=== PATIENT | female | born 1960 | race Caucasian/White ===

== ENCOUNTER 2016-03-24 14:48 | Emergency (ER) | payer OTHER, MEDICAID ==
[2016-03-24 15:05] VITALS: BP 126/70; PULSE 121; RESP 18; TEMP 98.4; O2SAT 95
--- NOTE | 2016-03-24 15:15 | EDPHY ---
[id number] OF PRESENT ILLNESS: This patient is a 56 year old female with a history of depression who presents to the Emergency Department requesting medication refills. She tells me that her psychiatrist, Dr. Hicks in [place], was suspended and that she is unable to get in to see a doctor for the next 6 weeks. She presents with a list of six medications including Rexulti , Cymbalta, Adderall, Clonazepam, and Tramadol but reports that she only takes Cymbalta and Rexulti regularly. She has no medical complaints at this time. REVIEW OF SYSTEMS: Constitutional: No fever, no chills Respiratory: No cough, no shortness of breath Cardiac: No chest pain Gastrointestinal: No nausea, no vomiting, no abdominal pain Musculoskeletal: No leg pain or swelling Skin: No rash Neurological: No headache Past Medical/Surgical History: 1. Depression 2. TBI Social History: Lives in [place]. Smoking Status: Current every day smoker Physical Exam: General Appearance: Alert, pleasant Eyes: Pupils equal and round, no conjunctival pallor ENT, Mouth: Mucous membranes moist Neck: Normal inspection Respiratory: Lungs are clear to auscultation Cardiovascular: Regular rate and rhythm Neurological: A&O, nonfocal, normal gait Skin: Warm and dry Psychiatric: Mood and affect normal Constitutional: Initial Vital Signs Temperature (C) 36.9 C 03/24/16 15:01 Heart Rate 121 H 03/24/16 15:01 Respiratory Rate 18 03/24/16 15:01 Blood Pressure 126/70 H 03/24/16 15:01 O2 Sat (%) 95 03/24/16 15:01 O2 Delivery Mode Room Air Allergies/Adverse Reactions: No Known Allergies Allergy (Unverified 09/05/10 22:05) Home Medications: Medication Instructions Recorded Abilify 5mg 05/16/09 Amphet Asp and D/Amphet [Adderall 20 mg PO DAILY 05/16/09 20 mg tab] Klonopin 05/16/09 LAMICTAL XR 05/16/09 PROzac 05/16/09 Adderall 10 MG (*) 03/24/16 Brexpiprazole [Rexulti] 0.5 mg PO DAILY #10 tablet 03/24/16 CLONAZEPAM 03/24/16 Cymbalta 03/24/16 DULoxetine [Cymbalta 30 MG (*)] 30 mg PO HS #10 cap 03/24/16 Rexulti 03/24/16 oxyCODONE/APAP 5/325 [Percocet] 1 - 2 tab PO Q4-6PRN PRN 03/24/16 traZODone 03/24/16 Medical Decision Making ED Course/Re-evaluation: I discussed the patient's case with Case Management who will arrange for the patient to be see by a psychiatrist within the week. She will be given her dosage of Rexulti and Cymbalta for the days remaining prior to this follow-up appointment. Departure - Departure Disposition: Home, Routine, Self-Care Clinical Impression: Medication refill Condition: Good Instructions: Medicine Refill (ED) Additional Instructions: 1. Follow up with the clinic as we discussed. 2. Continue to take your medications as prescribed. 3. Return to the Emergency Department with thoughts of harming yourself or others, anxiety or panic, or other serious concerns. ROSINA ALMAGUER WE HAVE MADE YOU AN APPOINTMENT AT [facility] ON March AT 325PM. YOUR APPOINTMENT IS WITH DR.JEN RICHARDSON. [facility] WILL ALSO BE THERE THAT AFTERNOON. IF YOU CAN STOP THERE BEFORE WEDNESDAY AND SIGN A RELEASE OF RECORDS FOR YOUR [place] PROVIDER THIS WOULD BE OF GREAT ASSISTANCE TO BOTH YOU AND [facility]. THEY WILL CALL YOU. THE NUMBER AT THE CLINIC IS . THE ADDRESS IS [address] [place] [address]. Referrals: [facility] [Outside] - As per Instructions Prescriptions: DULoxetine [Cymbalta 30 MG (*)] 30 mg PO HS #10 cap Brexpiprazole [Rexulti] 0.5 mg PO DAILY #10 tablet Report Scribed for: Kerri Shah Report Scribed by: Carmen Dorsey Date of Report: 03/24/16 Time of Report: 15:14 Physician Review and Approval Statement: 03/24/16 15:14 Portions of this note were transcribed by a medical insurance clerk. I personally performed a history, physical exam, medical decision making, and confirmed accuracy of information the transcribed note.
== END 2016-03-24 16:39 | disposition home or self-care (01) ==
DX: Z76.0 Encounter for issue of repeat prescription (principal); F17.200 Nicotine dependence, unspecified, uncomplicated

== ENCOUNTER 2016-05-13 12:25 | Emergency (ER) | payer OTHER, MEDICAID ==
[2016-05-13 12:44] VITALS: TEMP 97.7
[2016-05-13] MEDS ORDERED: NS 500 ML IV ONE (12:45)
--- NOTE | 2016-05-13 13:03 | CPEKG ---
Heart Rate: 103 RR Interval: 583 P-R Interval: 136 QRSD Interval: 110 QT Interval: 392 QTC Interval: 513 P [place]: 0 QRS [place]: 258 T Wave [place]: 83 EKG Severity - ABNORMAL ECG - EKG Impression: VENTRICULAR-PACED RHYTHM Electronically Signed By: Kerri Shah 13-May-2016 21:56:35
[2016-05-13 13:08] LABS: % IMMATURE GRANULYOCYTES 1.1 % (0.0-1.1); ABSOLUTE IMMATURE GRANULOCYTES 0.12 10^3/uL (0.00-0.10); ADD DIFF? NO; ADD MORPH? NO; ADD SCAN? NO; ATYPICAL LYMPHOCYTE FLAG 10 (0-99); FRAGMENT RBC FLAG 0 (0-99); HEMATOCRIT 41.4 % (38.0-47.0); HEMOGLOBIN 13.1 g/dL (12.6-16.3); LEFT SHIFT FLG 0 (0-99); LIPEMIA HEMOLYSIS FLAG 80 (0-99); MEAN CELL HEMOGLOBIN CONCENTR. 31.6 g/dL (32.4-36.7); MEAN CELL VOLUME 91.8 fL (81.5-99.8); MEAN PLATELET VOLUME 8.6 fL (8.7-11.7); PLATELET CLUMPS FLAG 0 (0-99); PLATELET COUNT 600 10^3/uL (150-400); RED BLOOD CELL COUNT 4.51 10^6/uL (4.18-5.33); RED CELL DISTRIBUTION WIDTH 14.4 % (11.5-15.2)
[2016-05-13 13:20] LABS: INR 1.79 (0.83-1.16); PROTIME(PATIENT) 20.9 SEC (12.0-15.0)
[2016-05-13 13:32] LABS: ANION GAP 17 mEq/L (8-16); CALCIUM 10.1 mg/dL (8.5-10.4); CARBON DIOXIDE 23 mEq/l (22-31); CHLORIDE 95 mEq/L (97-110); CREATININE 0.6 mg/dL (0.6-1.0); GLOMERULAR FILTRATION RATE > 60; GLUCOSE 153 mg/dL (70-100); POTASSIUM 6.1 mEq/L (3.5-5.2); SODIUM 135 mEq/L (134-144)
--- NOTE | 2016-05-13 13:36 | EDPHY ---
H & P Time Seen by Provider: 05/13/16 13:17 HPI/ROS: CHIEF COMPLAINT: Episode of dizziness HISTORY OF PRESENT ILLNESS: 56-year-old female with diabetes, 3 weeks status post CABG and valve replacement, presents after an episode of dizziness. She was discharged home from rehab yesterday. She was discharged home on a fluid- restricted diet and with a new rx for insulin. She is also on multiple new medicaitons. She did not fill the insulin rx and has not taken insulin since discharge. Blood sugars have been running 150-200. This morning after eating breakfast, she felt dizzy and then had an episode of vomiting. She now feels better, but is quite thirsty. No dizziness or nausea now. No recent fever or illness. REVIEW OF SYSTEMS: Constitutional: No fever, no chills Eyes: No visual changes ENT: No sore throat Respiratory: No cough, no shortness of breath Cardiac: No chest pain Gastrointestinal: no abdominal pain Genitourinary: No hematuria, no dysuria Musculoskeletal: No leg pain or swelling Skin: No rash Neurological: No headache, no weakness Psychiatric: Anxiety Past Medical/Surgical History: CABG Valve replacement Diabetes Pacemaker Social History: staying with her mother Elevator Installer: Dr. Merlos Smoking Status: Former smoker Physical Exam: General Appearance: Alert, pleasant Eyes: Pupils equal and round, no conjunctival pallor or injection ENT, Mouth: Mucous membranes moist Neck: Normal inspection Respiratory: well-healing surgical incision without erythema warmth or tenderness, Lungs are clear to auscultation Cardiovascular: Regular rate and rhythm Gastrointestinal: Abdomen is soft and nontender Neurological: A&O, nonfocal exam Skin: Warm and dry, no rash Extremities: left lower [id number] surgical scar Psychiatric: Mood and affect normal Constitutional: Initial Vital Signs Temperature (C) 36.5 C 05/13/16 12:41 Heart Rate 107 H 05/13/16 12:41 Respiratory Rate 20 05/13/16 12:41 Blood Pressure 127/77 H 05/13/16 12:41 O2 Sat (%) 97 05/13/16 12:41 O2 Delivery Mode Room Air Allergies/Adverse Reactions: No Known Allergies Allergy (Unverified 09/05/10 22:05) Home Medications: Medication Instructions Recorded Aspirin EC [Aspirin EC 81 mg (*)] 81 mg PO DAILY 03/18/10 Carvedilol [Coreg (*)] 6.25 mg PO BIDMEAL 05/16/09 Torsemide [Demadex] 20 mg PO DAILY10 05/16/09 metFORMIN HCL [Glucophage 500 mg 500 mg PO BIDMEAL 05/16/09 (*)] Acetaminophen [Tylenol 325mg (*)] 650 mg PO Q4HRS 03/24/16 Atorvastatin Calcium [Lipitor 40 40 mg PO DAILY 03/24/16 mg (*)] Insulin Glargine [Lantus 100 8 units SC HS 03/24/16 UNITS/ML (*)] Insulin Regular Human [Humulin R 0 unit SC TID 03/24/16 100 units/ml (*)] traZODone [traZODONE 100MG (*)] 100 mg PO HS 03/24/16 Hydrocodone/Acetaminophen [[place] 1 each PO Q4HRS PRN 05/13/16 5/325 (*)] Lisinopril [Zestril 5 mg (*)] 5 mg PO DAILY@12 05/13/16 Polyethylene Glycol 3350 [Miralax 17 gm PO DAILY 05/13/16 17 gm (*)] Sennosides/Docusate Sodium 2 tab PO DAILY 05/13/16 [Senokot-S] Spironolactone [Aldactone 25 MG 25 mg PO DAILY 05/13/16 (*)] Venlafaxine Xr [Effexor Xr 75MG 225 mg PO DAILY 05/13/16 (*)] Warfarin Sodium [Coumadin 2MG (*)] 2 mg PO DAILY16 05/13/16 traMADol [Ultram 50 mg (*)] 50 - 100 mg PO Q4 PRN 05/13/16 Medical Decision Making - Diagnostics EKG Interpretation: EKG interpreted by me reveals a paced rhythm. ED Course/Re-evaluation: This pt presents after an episode of dizziness. IVF 500ml given for possible fluid depletion. Initial labs concerning for hyperkalemia (K+ 6.1). Unclear if valid reading or not. If valid, likely secondary to dehydration and spironolactone. Repeat K+ 5.5. Pt tolerated oral fluids well. monitoring analyst revealed a paced rhythm throughout. I called in a prescription for insulin for the pt (she uses a pen injector). I consulted [facility], who will f/u with the pt in the office tomorrow for reevaluation and repeat labs. Pt will increase her fluid intake today. Pt recently had pacemaker placed; I doubt that the pacemaker is malfunctioning, and decided not to have the pacer interrogated. If her sx recur, consider pacer interrogation. Differential Diagnosis: includes though not limited to hypoglycemia, dehydration, dysrhythmia, vertigo, TIA. - Data Points Laboratory Results: Laboratory Results 05/13/16 12:30 05/13/16 15:00 Medications Given: Discontinued Medications Sodium Chloride (Ns) 500 mls @ 0 mls/hr IV ONCE ONE PRN Reason: Wide Open Stop: 05/13/16 12:46 Last Admin: 05/13/16 12:56 Dose: 500 mls Departure - Departure Disposition: Home, Routine, Self-Care Clinical Impression: Dizziness Condition: Good Instructions: Dizziness (ED) Additional Instructions: You are dehydrated today. Drink 8 cups of water daily (increased amount). I called in a new prescription for insulin. 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 Check your blood sugar prior to meals and at bedtime. Return for recurrent symptoms or any concerns. Referrals: Gurinder Merlos MD [Medical Doctor] - 1 day without fail ([facility] will call you this afternoon with an appointment time for tomorrow.)
[2016-05-13 13:43] LABS: TROPONIN I 0.106 ng/mL (0-0.034)
[2016-05-13 14:54] VITALS: BP 107/72; O2SAT 95
[2016-05-13 15:22] LABS: ANION GAP 10 mEq/L (8-16); CALCIUM 8.9 mg/dL (8.5-10.4); CARBON DIOXIDE 24 mEq/l (22-31); CHLORIDE 98 mEq/L (97-110); CREATININE 0.5 mg/dL (0.6-1.0); GLOMERULAR FILTRATION RATE > 60; GLUCOSE 110 mg/dL (70-100); POTASSIUM 5.5 mEq/L (3.5-5.2); SODIUM 132 mEq/L (134-144); SPECIMEN HEMOLYSIS 102
[2016-05-13 16:31] VITALS: PULSE 103; RESP 20
== END 2016-05-13 16:32 | disposition home or self-care (01) ==
LOC: EDUNIT#
DX: R42 Dizziness and giddiness (principal); E11.9 Type 2 diabetes mellitus without complications; Z87.891 Personal history of nicotine dependence; Z79.82 Long term (current) use of aspirin; Z79.4 Long term (current) use of insulin; Z79.01 Long term (current) use of anticoagulants; Z95.5 Presence of coronary angioplasty implant and graft; Z95.0 Presence of cardiac pacemaker

== ENCOUNTER → 2016-08-12 | Outpatient (CLI) | payer OTHER, MEDICAID | LOC: BHFA 15:00 | PROVIDERS: ATTEND Internal Medicine Cardiovascular Disease | DX: I42.9 Cardiomyopathy, unspecified (principal) ==

== ENCOUNTER 2017-01-18 12:49 | Inpatient (IN) | payer OTHER, MEDICAID ==
--- NOTE | 2017-01-18 13:04 | EDPHY ---
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 She states that she obtained them illegally from the pharmacist. She tried to stop yesterday but today was suffering withdrawal symptoms. About an hour ago she took 15 x 20 mg OxyContin and attempt to end her life. She then regretted her action and called 911. Her ingestion was about an hour ago. She is currently awake in tearful. She has not vomited. She also has a history of the cardiac disease status post CABG and valve replacement and pacemaker with type 2 diabetes. She has a history of depression with previous hospitalizations. Police have the pill bottles in their custody has evidence. She had venlafaxine mixed in the bottle with the oxycodone but states she only took the oxycodone. REVIEW OF SYSTEMS: Constitutional: denies: chills, fever, recent illness, recent injury EENTM: denies: blurred vision, double vision, nose congestion Respiratory: denies: cough, shortness of breath Cardiac: denies: chest pain, irregular heart rate, lightheadedness, palpitations Gastrointestinal/Abdominal: Nausea, denies: abdominal pain, diarrhea, vomiting , blood streaked stools Genitourinary: denies: dysuria, frequency, hematuria, pain Musculoskeletal: Muscle aches Skin: denies: lesions, rash, jaundice, bruising Neurological: denies: headache, numbness, paresthesia, tingling, dizziness, weakness Hematologic/Lymphatic: denies: blood clots, easy bleeding, easy bruising Immunologic/allergic: denies: HIV/AIDS, transplant EXAM: GENERAL: Tearful, overweight HEAD: Atraumatic, normocephalic. EYES: Pupils equal round and reactive to light, extraocular movements intact, sclera anicteric, conjunctiva are normal. ENT: TMs normal, nares patent, oropharynx clear without exudates. Moist mucous membranes. NECK: Normal range of motion, supple without lymphadenopathy or JVD. LUNGS: Breath sounds clear to auscultation bilaterally and equal. No wheezes rales or rhonchi. HEART: Regular rate and rhythm without murmurs, rubs or gallops. ABDOMEN: Soft, nontender, normoactive bowel sounds. No guarding, no rebound. No masses appreciated. BACK: No CVA tenderness, no spinal tenderness, step-offs or deformities EXTREMITIES: Normal range of motion, no pitting or edema. No clubbing or cyanosis. NEUROLOGICAL: Cranial nerves II through XII grossly intact. Normal speech, normal gait. 5/5 strength, normal movement in all extremities, normal sensation PSYCH: Depressed, tearful SKIN: Warm, dry, normal turgor, no visible rashes or lesions. Source: Patient, Old records Exam Limitations: No limitations - Medical/Surgical History Hx Asthma: No Hx Chronic Respiratory Disease: Yes Hx Diabetes: Yes Hx Cardiac Disease: No Hx Renal Disease: No Hx Cirrhosis: No Hx Alcoholism: No Hx HIV/AIDS: No Hx Splenectomy or Spleen Trauma: No Other PMH: CHI, Depression, CABG x2, 2 heart valves replaced, pacemaker, DM, hypercholesterolemia - Family History Significant Family History: No pertinent family hx - Social History Smoking Status: Former smoker Alcohol Use: Sober Drug Use: None Constitutional: Initial Vital Signs Temperature (C) 36.3 C 01/18/17 12:54 Heart Rate 86 01/18/17 12:54 Respiratory Rate 18 01/18/17 12:54 Blood Pressure 123/81 H 01/18/17 12:54 O2 Sat (%) 98 01/18/17 12:54 O2 Delivery Mode Room Air O2 (L/minute) 2 Allergies/Adverse Reactions: No Known Allergies Allergy (Unverified 09/05/10 22:05) Home Medications: Medication Instructions Recorded Atorvastatin Calcium [Lipitor 40 40 mg PO HS 03/24/16 mg (*)] ARIPiprazole [Abilify 5 mg (*)] 5 mg PO HS 01/18/17 Aspirin EC [Aspirin EC 81 mg (*)] 81 mg PO HS 01/18/17 Brexpiprazole [Rexulti 2 MG (*)] 2 mg PO HS 01/18/17 Dextroamphetamine/Amphetamine 20 mg PO DAILY 01/18/17 [Dextroamp-Amphetamin 20 mg Tab] LORazepam [Ativan (*)] 1 mg PO TID PRN 01/18/17 Lisinopril [Zestril 10 mg (*)] 10 mg PO HS 01/18/17 Metformin HCl [Metformin 1000 mg] 1,000 mg PO HS 01/18/17 Metoprolol Succinate Xr [Toprol Xl 25 mg PO HS 01/18/17 25 mg (*)] Metoprolol Succinate Xr [Toprol Xl 50 mg PO HS 01/18/17 50 mg (*)] Warfarin Sodium [Coumadin 2MG (*)] 3 mg PO MOTUWETHFRSA@21 01/18/17 Warfarin Sodium [Coumadin 2MG (*)] 4 mg PO KIM@01/18/17 traZODone [traZODONE 100MG (*)] 100 mg PO HS 01/18/17 Medical Decision Making ED Course/Re-evaluation: 4:00 p.m. the patient is medically cleared for psychiatric evaluation. 7:00 p.m. care transferred to Dr. Ciro Salomon. Pending placement. Differential Diagnosis: Partial list of the Differential diagnosis considered include but were not limited to; depression, anxiety, substance abuse and although unlikely based on the history and physical exam, I also considered infection, head injury. - Data Points Laboratory Results: Laboratory Results 01/18/17 13:05 01/18/17 13:05 Medications Given: Lorazepam (Ativan) 0.5 - 1 mg PO Q4HRS PRN PRN Reason: Anxiety, Able to Take PO Stop: 07/18/17 00:10 Last Admin: 01/19/17 11:59 Dose: 1 mg Venlafaxine HCl (Effexor Xr) 150 mg PO DAILY CHRISSY Stop: 07/18/17 10:44 Last Admin: 01/19/17 11:59 Dose: 150 mg Discontinued Medications Aripiprazole (Abilify) 5 mg PO EDNOW ONE Stop: 01/18/17 21:01 Last Admin: 01/18/17 22:48 Dose: 5 mg Aspirin (Aspirin) 81 mg PO EDNOW ONE Stop: 01/18/17 22:35 Last Admin: 01/18/17 22:48 Dose: 81 mg Atorvastatin Calcium (Lipitor) 40 mg PO EDNOW ONE Stop: 01/18/17 21:07 Last Admin: 01/18/17 22:48 Dose: 40 mg Lorazepam (Ativan) 2 mg PO EDNOW ONE Stop: 01/18/17 18:20 Last Admin: 01/18/17 18:31 Dose: 2 mg Metformin HCl (Glucophage Xr) 1,000 mg PO ONCE ONE Stop: 01/18/17 20:50 Last Admin: 01/18/17 22:48 Dose: 1,000 mg Metoprolol Succinate (Toprol Xl) 50 mg PO DAILY CHRISSY Stop: 07/17/17 22:44 Last Admin: 01/19/17 09:14 Dose: Not Given Venlafaxine HCl (Effexor Xr) 75 mg PO EDNOW ONE Stop: 01/18/17 21:01 Last Admin: 01/18/17 22:48 Dose: 75 mg Warfarin Sodium (Coumadin) 1.5 mg PO EDNOW ONE Stop: 01/18/17 22:35 Last Admin: 01/18/17 23:24 Dose: 1.5 mg Departure - Departure Disposition: Acute Care Hospital Not [facility] Clinical Impression: Suicidal ideation Condition: Fair
[2017-01-18 13:17] LABS: ABSOLUTE IMMATURE GRANULOCYTES 0.07 10^3/uL (0.00-0.10); ADD DIFF? NO; ADD MORPH? NO; ADD SCAN? NO; ATYPICAL LYMPHOCYTE FLAG 0 (0-99); FRAGMENT RBC FLAG 0 (0-99); HEMATOCRIT 38.5 % (38.0-47.0); HEMOGLOBIN 13.5 g/dL (12.6-16.3); LEFT SHIFT FLG 0 (0-99); LIPEMIA HEMOLYSIS FLAG 90 (0-99); MEAN CELL HEMOGLOBIN 31.6 pg (27.9-34.1); MEAN CELL HEMOGLOBIN CONCENTR. 35.1 g/dL (32.4-36.7); MEAN CELL VOLUME 90.2 fL (81.5-99.8); MEAN PLATELET VOLUME 8.8 fL (8.7-11.7); PLATELET CLUMPS FLAG 10 (0-99); PLATELET COUNT 215 10^3/uL (150-400); RED BLOOD CELL COUNT 4.27 10^6/uL (4.18-5.33); RED CELL DISTRIBUTION WIDTH 13.2 % (11.5-15.2)
[2017-01-18 13:37] LABS: ANION GAP 12 mEq/L (8-16); CALCIUM 9.5 mg/dL (8.5-10.4); CARBON DIOXIDE 23 mEq/l (22-31); CHLORIDE 108 mEq/L (97-110); CREATININE 0.6 mg/dL (0.6-1.0); ETHANOL SERUM < 10 mg/dL (0-10); GLOMERULAR FILTRATION RATE > 60; GLUCOSE 140 mg/dL (70-100); POTASSIUM 4.8 mEq/L (3.5-5.2); SALICYLATE < 1.0 mg/dL (2.0-20.0); SODIUM 143 mEq/L (134-144)
[2017-01-18] MEDS ORDERED: LORazepam 1 MG TAB PO ONE (18:19)
[2017-01-18] MEDS ORDERED: metFORMIN SR 500 MG TAB PO ONE (20:49)
[2017-01-18] MEDS ORDERED: VENLAFAXINE XR 75 MG CAP PO ONE (21:00)
[2017-01-18] MEDS ORDERED: ARIPiprazole 5 MG TAB PO ONE (21:00)
[2017-01-18] MEDS ORDERED: VENLAFAXINE XR 75 MG CAP PO SCH (21:00)
[2017-01-18] MEDS ORDERED: ARIPiprazole 5 MG TAB PO SCH (21:00)
[2017-01-18] MEDS ORDERED: ATORVASTATIN CALCIUM 40 MG TAB PO ONE (21:06)
[2017-01-18 21:25] LABS: INR 1.73 (0.83-1.16); PROTIME(PATIENT) 20.3 SEC (12.0-15.0)
[2017-01-18 21:26] LABS: APTT 31.3 SEC (23.0-38.0)
[2017-01-18] MEDS ORDERED: WARFARIN SODIUM 1 MG TAB PO ONE (22:34)
[2017-01-18] MEDS ORDERED: ASPIRIN 81 MG CHEWABLE TAB PO ONE (22:34)
[2017-01-18] MEDS: METOPROLOL SUCCINATE XR 50 MG TAB PO SCH (23:24)
[2017-01-19] MEDS ORDERED: ACETAMINOPHEN 325 MG TAB PO PRN (00:11)
[2017-01-19] MEDS ORDERED: MAG HYDROX/AL HYDROX/SIMETH 30 ML UDCUP PO PRN (00:11)
[2017-01-19] MEDS ORDERED: MAGNESIUM HYDROXIDE 30 ML UDCUP PO PRN (00:11)
[2017-01-19] MEDS: LORazepam 0.5 MG TAB PO PRN ×4 (00:39→21:40)
[2017-01-19] MEDS: METOPROLOL SUCCINATE XR 50 MG TAB PO SCH (09:14)
--- NOTE | 2017-01-19 11:45 | BAPA ---
[f rep st] ADMISSION PSYCHIATRIC ASSESSMENT DATE OF SERVICE: 01/19/2017 CHIEF COMPLAINT: "I just really don't like myself." HISTORY OF PRESENT ILLNESS: Patient is a 56-year-old female with a long history of bipolar 2 disorder, substance abuse, and chronic suicidality. She was admitted after she had called the poncho ice from her home, telling them that she had overdosed on multiple medications. She stated that she had received some oxycodone from a friend who is a pharmacist who supplies her with the medication, a nd had been taking them during the day. She states that "I'm really ashamed, but I take them for fun ." She states that they did not seem to affect her, so she continued to take more and took 12-15 tab lets total. She states that she did feel somewhat better, but that she was concerned she may have ca used some harm to herself and called the ambulance. When the ambulance and police arrived, she told them that she was suicidal and they placed her on an M1 hold and brought her to the hospital for eval uation. In the emergency department, she was labile and disorganized, and the rn family had a diffic ult time getting information from her. They stated that she appeared to be manic and the M1 hold was continued and she was admitted for further evaluation. Today, she is quite calm and linear and displaying no evidence of val. Her affect is tearful, but stable. She states that she is ashamed about her substance use and describes feeling depressed for s ome time. She states that her mood has been chronically depressed "for years." She has recently bee n treated through [facility] with Effsujitor and Abileonila, and states that she has taken numerou s other medications in the past that either have not helped or have caused her to have weight gain. She states she is also ashamed of this because she recently had some heart surgery with pacemaker dee cement and lost weight, but then gained it back recently. She states, "I have nothing to live for." She describes having no local support, despite her sister apparently living in the area. She states that they are not speaking. She has contact with her mother who lives in [place] and supports her f inancially, but she describes her as "emotionally unavailable." She states that she spends "all day every day in my apartment." She has a cat who she states she is quite bonded to, but otherwise, has very few interactions with others and rarely leaves her home. She states that she began using the op iates about 6 months ago and has been taking Adderall for the last year also, both of which she obtai ns apparently illegally and takes recreationally. She denies any other drug use. She states that jg riddle again feels she has nothing to live for and remains suicidal, but told the rn family yesterday and me again today that she does not intend to overdose on pills anymore "because it just doesn't work." PAST PSYCHIATRIC HISTORY: Significant for previous psychiatric hospitalizations, though she cannot r emember dates and times. Our system indicates that she may have been at [facility] in July of 2012, but has not been at this facility for mental health complaints since May of 2009. S he does not currently have a psychiatrist and is managed through [facility]. She reports jg riddle has had numerous previous suicide attempts typically by overdose, but does not remember the last ti me. She states that she has taken numerous antidepressants and indicates that this includes most of the SSRIs and multiple atypical antipsychotics and mood stabilizers, all of which she states either d o not work or cause side effects, primarily weight gain. ALLERGIES: No known medical allergies. CURRENT MEDICATIONS: Include Abilify 5 mg at h.s., aspirin 81 mg at h.s., Lipitor 40 mg at h.s., Cristopher ulti 2 mg at h.s., lisinopril 10 mg at h.s., metformin 1000 mg at h.s., metoprolol succinate XR 75 mg at h.s., trazodone 100 mg at h.s., and warfarin 3 mg on Wednesday, Wednesday, Wednesday, , Wednesday , and Wednesday and 4 mg on Wednesday. She also has listed lorazepam 1 mg t.i.d., though she states she is not taking that. PAST MEDICAL HISTORY: Significant for cardiac disease including history of 2-vessel bypass, valve re placement, recent pacemaker placement, and some degree of failure. She also had a history of high bl ood sugars when she was taking Rexulti and that is why this was discontinued. SOCIAL HISTORY: Patient was raised in [place] and [place]. She states that her parents were when she was young and her mother has several wealthy men since then. She currently lives in [place], [place], and spends her time between there and their home in [place]. The patie nt states that she does not visit her mother, but that her mother provides her with support on a alecia hly basis. She is not employed and this is her only means of support. She lives in [address] in [place], [place], in an apartment by herself. She states she does not have any friends, though s he has some acquaintances in her apartment complex. She lives with her cat Latisha, whom she states is her only support. She denies any other psychosocial stressors at this time. FAMILY HISTORY: Patient denies any family history of mental illness. ADMISSION LABORATORY: CBC is normal. INR was 1.73 on admission. Nonfasting glucose was up at 140. Beta hCG was negative. Serum chemistries were normal. Urine drug screen was positive for amphetami neelam and benzodiazepines. MENTAL STATUS EXAMINATION: Reveals an unkempt female lying in hospital bed. Her external appearance is notable for a large excoriation over the bridge of her nose and the left eyebrow. She also has an area under the left side of her mandible. She states that these are areas where she had abrasions and that she picks at them and that this is somewhat compulsive behavior. Her affect is bl unted, dysphoric, tearful, stable and appropriate. Her mood is described as "depressed." Her though t process is linear and goal directed. Her thought content reveals no evidence of psychosis. There is mention in the [facility] report of her responding to internal stimuli, though this is not apparent at th is time. She denies any auditory, visual, or tactile hallucinations. She is alert and oriented to p erson, place, time, and situation, and is aware that she is in [facility] and that we are in a separate campus from the hospital she came to yesterday. She is aware of her circumstance and states "this is a good program to help people." Her intellect appears to be at least average as evidenced by her fund of knowledge and vocabulary. She continues to endorse active thoughts of suici de, though states she has no intention to harm herself at this time. Her insight and judgment appear to be fair. IMPRESSION: Bipolar 2 disorder, most recent episode depressed, severe without psychosis. Amphetamin e use disorder severe, opiate use disorder severe, lack of natural supports, social isolation, chroni c illness, cardiac disease. Patient is a pleasant 56-year-old female with a history of bipolar disorder. She presents at this time appearing depressed on a reasonable regimen of Effexor and Abilify. She states, however , that her mood is chronically low and that this seems to fuel her suicidality. This is compounded b y her abuse of opiates and amphetamines, and she voices a desire to be off these medications at this time. It is unclear whether she is taking a benzodiazepine or not and we will monitor closely for an y withdrawal symptoms, providing lorazepam on an as-needed basis. She will not receive opiates or am phetamines, and we will have to monitor also for any withdrawal symptoms at least from the opiates. I will increase the Abilify from 5 to 10 mg and continue the Effexor at her previous dose of 225. I discussed with her the relative cardiac risks of higher dose Effexor for anyone status post coronary artery bypass graft, and she states she understands this and would like to continue it. PLAN: 1. Admit to the behavioral health services inpatient unit on an M1 hold. 2. Continue medications as listed above. 3. Continue medical medications as previously prescribed and per the direction of Dr. Puga. 4. Engage in individual, group, and milieu psychotherapies to better understand her current psycholo gical stance and chronic suicidality and help plot a course for discharge. 5. Will connect the patient better with outpatient mental health services including a psychiatrist i f possible and coordinate with her outpatient prescribers. 6. Estimated length of stay is 3-5 days. /[id number]/MODL
[2017-01-19] MEDS: VENLAFAXINE XR 150 MG CAP PO SCH (11:59)
[2017-01-19] MEDS ORDERED: WARFARIN SODIUM 2 MG TAB PO ONE ×2 (17:00→21:00)
[2017-01-19] MEDS: ASPIRIN EC 81 MG TAB PO SCH (19:11)
[2017-01-19] MEDS: BREXPIPRAZOLE 2 MG TAB PO SCH ×2 (19:11→19:12)
[2017-01-19] MEDS: ARIPiprazole 10 MG TAB PO SCH (19:11)
[2017-01-19] MEDS: metFORMIN HCL 500 MG TAB PO SCH (19:13)
[2017-01-19] MEDS: METOPROLOL SUCCINATE XR 25 MG TAB PO SCH ×2 (19:14→19:32)
[2017-01-19] MEDS: ATORVASTATIN CALCIUM 40 MG TAB PO SCH (19:14)
[2017-01-19] MEDS: LISINOPRIL 10 MG TAB PO SCH (19:14)
[2017-01-19] MEDS: traZODone 100 MG TAB PO SCH (19:14)
[2017-01-19] MEDS ORDERED: METOPROLOL SUCCINATE XR 50 MG TAB PO SCH (21:00)
[2017-01-19] MEDS ORDERED: WARFARIN SODIUM 2 MG TAB PO SCH (21:00)
[2017-01-19] MEDS ORDERED: BREXPIPRAZOLE 2 MG TAB PO SCH (21:00)
[2017-01-19] MEDS ORDERED: metFORMIN HCL 500 MG TAB PO SCH (21:00)
[2017-01-19] MEDS ORDERED: NON-FORMULARY NEW DRUG (Metformin Hcl [Metformin 1000 Mg] 1,000 MG) PO SCH (21:00)
[2017-01-19] MEDS ORDERED: LORazepam 1 MG TAB PO ONE (23:00)
--- NOTE | 2017-01-20 04:24 | BCON ---
[f rep st] BEHAVIORAL HEALTH CONSULTATION INTERNAL MEDICINE CONSULTATION DATE OF CONSULTATION: 01/19/2017 REFERRING PHYSICIAN: Nahum Mast MD REASON FOR REFERRAL: Medical clearance for inpatient behavioral health stay. HISTORY OF PRESENT ILLNESS: This patient came to the [facility] Emergency Department complaining of suicidality and reporting that she had an addiction to opiates and stimulants and was unable to stop on her own. She was evaluated by the mental health team and admitted for further psychiatric care. She reports that she feels cold and fatigued, but otherwise denies any acute symptoms. PAST MEDICAL HISTORY: 1. Coronary artery disease. 2. Cardiac valvular disease. 3. Diabetes mellitus type 2. PAST SURGICAL HISTORY: She has had a coronary artery bypass graft and 2 valve replacements. MEDICATIONS: Prior to admission: 1. Warfarin. 2. Metoprolol XL 75 mg q.h.s. 3. Metformin 1000 mg p.o. q.h.s. 4. Lorazepam 1 mg p.o. three times daily p.r.n. 5. Trazodone 100 mg p.o. q.h.s. 6. Lisinopril 10 mg p.o. q.h.s. 7. Dextroamphetamine/amphetamine 20 mg p.o. daily. 8. Atorvastatin 40 mg p.o. q.h.s. 9. Aspirin 81 mg p.o. q.h.s. 10. Brexpiprazole 2 mg p.o. q.h.s. 11. Aripiprazole 5 mg p.o. q.h.s. ALLERGIES: There are no known drug allergies. SOCIAL HISTORY: She lives alone. She has very limited social contacts other than her cat. She is formally a tobacco smoker, but has quit especially since her heart surgery last April. She used to own a hair salon, but sold it several years ago. FAMILY HISTORY: Noncontributory. REVIEW OF SYSTEMS: She denies constipation, diarrhea, nausea or vomiting. She is not in pain and other than as in HPI, a 10 point review of systems is negative. PHYSICAL EXAMINATION: VITAL SIGNS: Blood pressure is 121/68, heart rate is 87 , respiratory rate is 15, oxygen saturation is 96% on room air, temperature is 36.8 degrees centigrade, her weight is 63.5 kg for a body mass index of 24. However, she appears to be more overweight than that. GENERAL: This is an overweight appearing woman, who appears her chronologic age, cooperative, and in no acute distress. HEENT: Extraocular movements are intact. Pupils are equal, round, and reactive to light. Mucous membranes are moist. She has a moderately crowded airway, Mallampati class 3. NECK: Supple. HEART: There is a regular rate and rhythm with no murmurs, rubs, or gallops. LUNGS: Clear to auscultation bilaterally. ABDOMEN: Soft, nontender, nondistended with normoactive bowel sounds. EXTREMITIES: There is no cyanosis, clubbing, or edema. Radial pulses are 2+ bilaterally. Pedal pulses are trace. NEUROLOGIC: She is alert and oriented x3. There is no focal weakness. Cranial nerves 2- 12 are grossly intact and sensation is intact to light touch. LABORATORY DATA: Laboratory studies drawn in the emergency department: CBC was overall within normal limits. She had a slight predominance of relative neutrophils, but no leukocytosis. Coagulation: INR was 1.73. Serum chemistry revealed normal renal function and electrolytes. Blood sugar was elevated at 140, but was nonfasting. She had a set of lab tests done in September of this year , in which her TSH was normal at 1.49. Her liver functions were overall within normal limits, but for a slightly elevated alkaline phosphatase. She had a moderately elevated BNP at 553, which was consistent with mild heart failure. BNP was 2330 in April of this year. Toxicology screen in the serum was negative for salicylates, acetaminophen, or ethyl alcohol. Toxicology screen in the urine was non-negative for amphetamines and benzodiazepines. ASSESSMENT/PLAN: 1. Mental health issues. Pending further evaluation and management per Psychiatry and the mental health team. 2. Coronary artery disease status post coronary artery bypass and valve replacements. 3. Chronic anticoagulation. Will order warfarin management per Pharmacy. 4. Congestive heart failure, compensated. Continue Toprol-XL and lisinopril. 5. Diabetes mellitus type 2. Continue metformin 1000 mg daily. Will increase dose to 1000 mg b.i.d., which will give her the maximum benefit. 6. Weight gain. Increasing metformin might improve weight gain. Advise considering caution with medications, which could promote further weight gain. I see no medical contraindications to this patient's continued stay on the inpatient behavioral health unit or to any psychiatric medications or procedures. Thank you very much for including me in the care of this patient and please do not hesitate to contact me or the hospitalist service should there be need for further medical evaluation. /[id number]/MODL MTDD
[2017-01-20 08:33] LABS: INR 1.35 (0.83-1.16); PROTIME(PATIENT) 16.7 SEC (12.0-15.0)
[2017-01-20] MEDS: metFORMIN HCL 500 MG TAB PO SCH ×2 (08:55→19:11)
[2017-01-20] MEDS: VENLAFAXINE XR 150 MG CAP PO SCH (08:55)
[2017-01-20] MEDS: LORazepam 0.5 MG TAB PO PRN ×2 (12:53→18:05)
--- NOTE | 2017-01-20 14:38 | SOAPPROG ---
SOAP Progress Note Assessment/Plan: Assessment: Unspecified Bipolar Disorder Stimulant Use Disorder - severe Opioid Use Disorder - severe Sedative Use Disorder - severe Possible Opioid Withdrawal Possible stimulant related mood/depressive disorder Coronary Artery Disease, Cardiac Valve Disease; Type 2 Diabetes Patient on M-1 hold for mood lability and suicidal statements. Patient reported having episodic disorganization on unit but overall has been calm and cooperative with medication. Patient does not currently appear to be in sedative withdrawal and denies recent binging on sedatives but reports abusing valium years ago and last filled Ativan script 1mg #30 in early November Plan: Monitor thought organization and behavior on unit; monitor mood stability and risk of self-harm Continue Abilify 10mg, increased after admission for mood stability Continue Effexor and Trazodone Hold/discontinue Rexulti (similar to Abilify); Hold Adderall PRN Ativan 1mg Q4 hours for severe anxiety (possible opioid withdrawal) Will not order PRN Clonidine due to cardiac medications Start Hydroxyzine 25mg W3oyesr PRN nausea or diarrhea Add Urine Oxycodone to ER urine test 01/20/17 14:43 Subjective: "I'm alright and ready to go" Patient reports wanting to discharge to be with her cat. Reports manager maintenance in apartment was able to set out water. Reports living along and receiving disability benefits for mental health and medical reasons. Reports 2 past hospitalizations for bipolar disorder many years ago. Denies currently feeling hopeless or suicidal. Reports poor sleep and anxiety and diarrhea overnight. Reports abusing Oxycontin, Adderall prior to admission. Denies abusing sedatives prior to admission but reports in the past having addiction ( binging, misusing) Valium. Endorses a history of hypomanic and depressive episodes in the past that interfered with her ability to work and function. PDMP indicates patient filled Adderall 20mg #30 in november and Ativan 1mg # 30 in early November. Objective: Vital Signs Temp Pulse Resp BP Pulse Ox 36.8 C 68 14 115/58 L 94 01/20/17 06:44 01/20/17 08:00 01/20/17 08:00 01/20/17 08:00 01/20/17 08:00 PT 16.7 SEC (12.0-15.0) H 01/20/17 06:45 INR 1.35 (0.83-1.16) H 01/20/17 06:45 Alert WF. Ambulatory without tremors or weakness. Fair eye contact, no distress. Speech RRR, loud at times. Mood 'alright, ready to go.' Affect euthymic and pleasant. Thoughts organized and tangential. Denies SI or HI or AH. No evident delusions. Memory: intact to month and year but not day of month. Normal clockdrawing. Unable to perform serial 7 subtractions. Staff report patient slept 6 hours and was somewhat confused yesterday on unit and not going to groups. - Time Spent With Patient Time Spent With Patient: 40 minutes - Pending Discharge Pending Discharge Within 24 Hours: Yes Pending Discharge Date: 01/21/17 Pending Discharge Time: 13:00 ICD10 Worksheet Patient Problems: Problems Problem Status Onset Suicidal ideation Acute
[2017-01-20] MEDS: NICOTINE POLACRILEX 2 MG GUM B PRN ×2 (14:48→17:22)
[2017-01-20] MEDS ORDERED: hydrOXYzine HCL 25 MG TAB PO PRN (14:48)
[2017-01-20] MEDS: ASPIRIN EC 81 MG TAB PO SCH (19:10)
[2017-01-20] MEDS: LISINOPRIL 10 MG TAB PO SCH (19:10)
[2017-01-20] MEDS: traZODone 100 MG TAB PO SCH (19:10)
[2017-01-20] MEDS: ATORVASTATIN CALCIUM 40 MG TAB PO SCH (19:10)
[2017-01-20] MEDS: ARIPiprazole 10 MG TAB PO SCH (19:10)
[2017-01-20] MEDS: METOPROLOL SUCCINATE XR 25 MG TAB PO SCH (19:11)
[2017-01-20] MEDS ORDERED: WARFARIN SODIUM 2 MG TAB PO ONE (21:00)
[2017-01-21 06:38] VITALS: BP 123/62; PULSE 85; RESP 20; TEMP 98.3; O2SAT 94
[2017-01-21] MEDS: VENLAFAXINE XR 150 MG CAP PO SCH (08:28)
[2017-01-21] MEDS: metFORMIN HCL 500 MG TAB PO SCH (08:28)
[2017-01-21] MEDS: LORazepam 0.5 MG TAB PO PRN (09:24)
--- NOTE | 2017-01-21 09:40 | BDS ---
[f rep st] BEHAVIORAL HEALTH DISCHARGE SUMMARY IDENTIFICATION: This is a 56-year-old single white female who lives alone in an apartment with a cat. She receives Social Security Disability benefits for medical and mental health problems. ADMITTING DIAGNOSES: 1. Bipolar disorder type 2, most recent episode depressed, severe, without psychotic features. 2. Amphetamine or stimulant use disorder, severe. 3. Opiate use disorder, severe. 4. Lack of support. 5. Multiple medical problems. BRIEF PSYCHIATRIC HISTORY: The patient apparently has 2 prior psychiatric hospitalizations for bipolar disorder in the past. She is not currently in any outpatient mental health treatment. She has been receiving Effexor, and Rexulti , and Adderall, and Ativan from her primary care provider for mental health problems. The patient has a history of recurrent sedative abuse, including past Valium abuse. She also has a history of opiate abuse and stimulant abuse. She has a history of a psychiatric hospitalization in [facility] in 2012. She has had multiple past suicide attempts by overdose. She denies any history of violence toward others. BRIEF MEDICAL HISTORY: The patient has a history of cardiac valve replacement, coronary artery bypass surgery, pacemaker, type 2 diabetes, and borderline congestive heart failure. REASON FOR ADMISSION: The patient apparently called 911 reporting that she was suicidal and had overdosed on OxyContin that she had obtained illicitly. She also reported a history of abusing illicit amphetamine medications. The patient was taken from her apartment to the emergency room by paramedics, and then admitted to the inpatient unit on M1 hold. INITIAL EXAM: The patient in the emergency room apparently was labile, disorganized, tangential, irritable, reported suicidal thoughts with plan to overdose on pills. On the inpatient unit on the 1st day, the patient had dysphoric and tearful affect and reported feeling hopeless. The patient was ambulatory without tremors. HOSPITAL COURSE: The patient was admitted on M1 hold to the inpatient unit due to concern that she was a danger to herself. The patient's initial assessment indicated that the patient likely had a substance induced mood disorder. The patient apparently had been prescribed Adderall from her primary care provider, but had been obtaining Adderall from a friend, and had been abusing this, and then having insomnia, irritability, mood swings and suicidal thinking. The patient also reported obtaining illicit opiates, and had been abusing OxyContin prior to admission. The patient was on Effexor, Rexulti, trazodone and Ativan from her primary care provider. The Rexulti was discontinued, as it is not clear that this was an effective medication. The patient's Effexor was continued for her history of severe depression. The patient was started on Abilify, and that was increased to 10 mg as a mood stabilizer. The patient was continued on her trazodone at night for insomnia. The patient was placed on p.r.n. Ativan for anxiety, as well as for possible opiate withdrawal related anxiety. The patient did have some anxiety, trouble sleeping, and some diarrhea on the unit, consistent with opiate withdrawal. The patient only had mild symptoms that responded to p.r.n. Ativan and p.r.n. hydroxyzine. The patient was seen by the hospitalist due to her multiple medical problems. She was continued on her warfarin. She was also on Lipitor, lisinopril, metformin, and metoprolol. The patient's INR was monitored, and her Coumadin dosing was adjusted by the pharmacist. The patient was ambulatory on the unit. She did appear to be distracted and mildly disorganized initially but this improved. She had mild cognitive impairment regarding recent events, but had intact memory to month, year, location, and had a normal clock drawing. She was able to name her primary care provider and photographic machine operator and their locations. The patient was able to attend groups, able to attend meals, appeared calm and appropriate on the unit. She reported an improvement in mood and reported remission of her suicidal thoughts. The patient did not appear agitated. The patient did not appear impulsive or grandiose. She did have some tangential thinking on the unit on the first day, but this improved probably due to her compliance with her Abilify combined with sobriety. The patient reported receiving outpatient medical treatment at [facility], but was not in any outpatient mental health treatment. She signed a release of information from [facility] for referral to followup there. The patient was able to contact the pipe fitter supervisor maintenance in her apartment building, as well as a friend to feed and water her cat. The patient on the unit did not have any dangerous, violent, or self-injurious behaviors. She was cooperative with medications. She was appropriate and pleasant when interviewed and was observed to be calm and pleasant when interacting with other patients and staff. CONDITION AT DISCHARGE: She is alert white female in no acute distress. She is ambulatory and cooperative. Her thoughts are organized. She denies any thoughts to hurt herself or others. She describes her mood as "pretty good." Her affect is euthymic. She denies paranoia or hallucinations. Her memory is intact to major events including month, year, location, and she has a normal clock drawing test. However, she is a poor historian and has difficulty with serial subtraction. The patient has fair insight and appropriate judgment. DISCHARGE DIAGNOSES: 1. Unspecified bipolar disorder. 2. Stimulant use disorder, severe. 3. Opiate use disorder, severe. 4. History of sedative use disorder. 5. Cardiac valve replacement. 6. Coronary artery disease with a history of coronary artery bypass graft. 7. Type 2 diabetes. 8. Rule out Mild Neurocognitive Disorder DISCHARGE MEDICATIONS: 1. Warfarin 3 mg by mouth daily. #7 2. Abilify 10 mg by mouth daily. 3. Lipitor 40 mg by mouth daily. 4. Hydroxyzine 25 mg p.o. q.6 hours p.r.n. for nausea or diarrhea related to opiate withdrawal, #10. 5. Lisinopril 10 mg. 6. Metformin 1,000 mg at night. 7. Metoprolol 25 mg by mouth at bedtime. 8. Trazodone 100 mg p.o. at bedtime. 9. Effexor 150 mg p.o. daily. DIET: The patient should have a diabetic 2,000 kilocalorie diet after discharge. LABS: The patient had white blood cell count 7.2, hemoglobin 13.5, platelet count 215. Her INR was 1.35 after she had been taking 2 mg of warfarin. Sodium 143, potassium 4.8, creatinine 0.6, glucose 140. Serum beta HCG was negative. Calcium 9.5. The urine oxycodone screen is pending. The patient's urine tox screen was positive for amphetamines and benzodiazepines. DISPOSITION: The patient will receive assistance in getting home to her apartment. Her sister lives in the area and patient reports some supports. FOLLOWUP: The patient will follow up at [facility] for medical care, and [facility] for mental health care. Of note, the patient was only given a prescription for 1 week of her warfarin, as she is scheduled to have a PT/INR next week at the lab that she goes to for her photographic machine operator. LEGAL STATUS: The patient was admitted on M1 hold, will be discharged to be receiving outpatient treatment on a voluntary basis. /[id number]/MODL MTDD
[2017-01-21] MEDS ORDERED: WARFARIN SODIUM 2 MG TAB PO SCH (21:00)
[2017-01-24] MEDS ORDERED: WARFARIN SODIUM 2 MG TAB PO SCH (21:00)
== END 2017-01-21 10:56 | disposition home or self-care (01) | DRG 885 ==
LOC: EDUNIT# → BBEH 23:50
PROVIDERS: ADMIT Psychiatry & Neurology Psychiatry; ATTEND Psychiatry & Neurology Psychiatry
DX: F31.4 Bipolar disorder, current episode depressed, severe, without psychotic features (principal); F15.90 Other stimulant use, unspecified, uncomplicated; F11.90 Opioid use, unspecified, uncomplicated; I25.10 Atherosclerotic heart disease of native coronary artery without angina pectoris; E11.9 Type 2 diabetes mellitus without complications; E78.00 Pure hypercholesterolemia, unspecified; Z87.891 Personal history of nicotine dependence; Z95.2 Presence of prosthetic heart valve; Z95.1 Presence of aortocoronary bypass graft; Z95.0 Presence of cardiac pacemaker
CPT/HCPCS: 80305; G0480

== ENCOUNTER 2017-01-23 09:19 | Emergency (ER) | payer OTHER, MEDICAID ==
[2017-01-23 09:28] VITALS: TEMP 98.1
[2017-01-23 10:11] LABS: % IMMATURE GRANULYOCYTES 1.1 % (0.0-1.1); ABSOLUTE IMMATURE GRANULOCYTES 0.11 10^3/uL (0.00-0.10); ADD DIFF? NO; ADD MORPH? NO; ADD SCAN? NO; ATYPICAL LYMPHOCYTE FLAG 10 (0-99); FRAGMENT RBC FLAG 0 (0-99); HEMATOCRIT 45.6 % (38.0-47.0); HEMOGLOBIN 15.9 g/dL (12.6-16.3); LEFT SHIFT FLG 10 (0-99); LIPEMIA HEMOLYSIS FLAG 90 (0-99); MEAN CELL HEMOGLOBIN 31.4 pg (27.9-34.1); MEAN CELL HEMOGLOBIN CONCENTR. 34.9 g/dL (32.4-36.7); MEAN CELL VOLUME 89.9 fL (81.5-99.8); MEAN PLATELET VOLUME 9.1 fL (8.7-11.7); PLATELET CLUMPS FLAG 10 (0-99); PLATELET COUNT 297 10^3/uL (150-400); RED BLOOD CELL COUNT 5.07 10^6/uL (4.18-5.33)
[2017-01-23 10:20] LABS: INR 1.87 (0.83-1.16); PROTIME(PATIENT) 21.6 SEC (12.0-15.0)
--- NOTE | 2017-01-23 10:26 | EDPHY ---
H & P Time Seen by Provider: 01/23/17 09:29 HPI/ROS: CHIEF COMPLAINT: Abdominal pulsation and bloating HISTORY OF PRESENT ILLNESS: 56-year-old female presents to the emergency department by private vehicle complaining of abdominal bloating and "pulsating" . Patient states last evening she was lying in bed and was doing some "stretching "and felt a pulling sensation in the right side of her abdomen. She states since that time she has noticed abdominal distention. She has no real pain associated with this but she is concerned about the pulsations she is seeing in her abdomen. She has never had this in the past. No other known reported trauma. She denies chest pain or difficulty breathing. Denies back pain. She denies feeling lightheaded or dizzy. Patient has complex past medical history including cardiac valve replacement and coronary artery bypass graft. She is on Coumadin. She has a pacemaker with a history of CHF. REVIEW OF SYSTEMS: Constitutional: No fever, no chills. Eyes: No double or blurry vision. ENT: No sore throat. Respiratory: No cough, no shortness of breath. Cardiac: No chest pain. Gastrointestinal: As above. No vomiting or diarrhea. Genitourinary: No dysuria. Musculoskeletal: No neck or back pain. Skin: No rashes. Neurological: No headache. Past Medical/Surgical History: Bipolar type 2, cardiac valve replacement, coronary artery bypass graft, pacemaker, CHF, stop oxycodone 3 or 4 days ago for chronic ankle pain. Social History: Single Smoking Status: Former smoker Physical Exam: General Appearance: Alert, no distress. Temperature 36.7degrees, blood pressure 119/67, heart rate 102, 97% on room air. Eyes: Pupils equal and round. Extraocular motions are all intact. ENT: Mouth: Mucous membranes moist. Respiratory: No wheezing, rhonchi, or rales, lungs are clear to auscultation. Cardiovascular: Regular rate and rhythm. Gastrointestinal: Abdomen is soft. She does have some abdominal distension noted. No palpable masses, however the patient's abdomen is moving in a rhythmic fashion which could be pulsation although no palpable pulsatile masses noted. Abdomen is soft and nontender. Neurological: Alert and oriented x 3, cranial nerves II through XII grossly intact Skin: Warm and dry, no rashes. Musculoskeletal: Nontender to palpate along the cervical, thoracic or lumbar spine. Neck is supple. Extremities: Full range of motion and no peripheral edema. Psychiatric: Patient is oriented X 3, there is no agitation. Constitutional: Initial Vital Signs Temperature (C) 36.7 C 01/23/17 09:25 Heart Rate 102 H 01/23/17 09:25 Respiratory Rate 20 01/23/17 09:25 Blood Pressure 119/67 01/23/17 09:25 O2 Sat (%) 97 01/23/17 09:25 O2 Delivery Mode Room Air Allergies/Adverse Reactions: No Known Allergies Allergy (Verified 01/23/17 09:24) Home Medications: Medication Instructions Recorded Aspirin EC [Aspirin EC 81 mg (*)] 81 mg PO HS 01/18/17 ARIPiprazole [Abilify 10 mg (*)] 10 mg PO HS #30 tab 01/21/17 Atorvastatin Calcium [Lipitor 40 40 mg PO HS #30 tab 01/21/17 mg (*)] Atorvastatin Calcium [Lipitor 40 40 mg PO HS #30 tab 01/21/17 mg (*)] Lisinopril [Zestril 10 mg (*)] 10 mg PO HS #30 tab 01/21/17 Metformin HCl [Metformin 1000 mg] 1,000 mg PO HS #30 tablet 01/21/17 Metoprolol Succinate Xr [Toprol Xl 25 mg PO HS #30 tab 01/21/17 25 mg (*)] Venlafaxine Xr [Effexor Xr] 150 mg PO DAILY #30 cap 01/21/17 Warfarin Sodium 3 mg PO DAILY 7 Days #7 tablet 01/21/17 hydrOXYzine HCL [hydrOXYzine HCL 25 mg PO Q6HRS PRN #10 tab 01/21/17 (RX)] traZODone [traZODONE 100MG (*)] 100 mg PO HS #30 tab 01/21/17 Medical Decision Making - Diagnostics Imaging Results: Imaging Impressions Abdomen CT 01/23/17 10:39 Impression: 1. Normal caliber atherosclerotic aorta. No aneurysm. 2. No intraabdominal mass, lymphadenopathy, ascites, or localized intraabdominal process. 3. Mild right-sided constipation. Otherwise normal bowel pattern. Findings discussed with Emergency Department physician railways assistant, Blanca Bryant, on January 23, 2017 at 11:31 a.m. Imaging: Discussed imaging studies w/ chairman & ceo Radiologist ED Course/Re-evaluation: 56-year-old female presents to the emergency department with abdominal distention and bloating. She is also complaining of a pulsating sensation in her abdomen. It is concerned about possible abdominal aortic aneurysm. Her vital signs are stable. CT imaging of the abdomen and pelvis was normal. No aneurysm. The patient was reassured. She was given a mg of Ativan p.o. per her request for her symptoms of anxiety. I encouraged to have close follow-up with primary care provider for further Ativan. Patient verbalized understanding and agreed. The case was discussed with Dr. Corey Castillo, secondary supervising physician , who did not directly evaluate the patient but agrees with treatment and plan. Differential Diagnosis: Including but not limited to aneurysm, obstruction, constipation, colitis, diverticulitis, acute appendicitis - Data Points Laboratory Results: Laboratory Results 01/23/17 10:04 01/23/17 10:04 01/23/17 01/23/17 01/23/17 10:04 10:04 10:04 WBC 10.07 10^3/uL H 10^3/uL (3.80-9.50) RBC 5.07 10^6/uL 10^6/uL (4.18-5.33) Hgb 15.9 g/dL g/dL (12.6-16.3) Hct 45.6 % % (38.0-47.0) MCV 89.9 fL fL (81.5-99.8) MCH 31.4 pg pg (27.9-34.1) MCHC 34.9 g/dL g/dL (32.4-36.7) RDW 14.0 % % (11.5-15.2) Plt Count 297 10^3/uL 10^3/uL (150-400) MPV 9.1 fL fL (8.7-11.7) Neut % (Auto) 67.6 % % (39.3-74.2) Lymph % (Auto) 21.8 % % (15.0-45.0) [place] % (Auto) 8.3 % % (4.5-13.0) Eos % (Auto) 0.7 % % (0.6-7.6) Baso % (Auto) 0.5 % % (0.3-1.7) Nucleat RBC Rel Count 0.0 % % (0.0-0.2) Absolute Neuts (auto) 6.80 10^3/uL H 10^3/uL (1.70-6.50) Absolute Lymphs (auto) 2.20 10^3/uL 10^3/uL (1.00-3.00) Absolute Monos (auto) 0.84 10^3/uL H 10^3/uL (0.30-0.80) Absolute Eos (auto) 0.07 10^3/uL 10^3/uL (0.03-0.40) Absolute Basos (auto) 0.05 10^3/uL 10^3/uL (0.02-0.10) Absolute Nucleated RBC 0.00 10^3/uL 10^3/uL (0-0.01) Immature Gran % 1.1 % % (0.0-1.1) Immature Gran # 0.11 10^3/uL H 10^3/uL (0.00-0.10) PT 21.6 SEC H SEC (12.0-15.0) INR 1.87 H (0.83-1.16) Sodium 138 mEq/L mEq/L (134-144) Potassium 4.6 mEq/L mEq/L (3.5-5.2) Chloride 99 mEq/L mEq/L (97-110) Carbon Dioxide 21 mEq/l L mEq/l (22-31) Anion Gap 18 mEq/L H mEq/L (8-16) BUN 27 mg/dL H mg/dL (7-23) Creatinine 1.1 mg/dL H mg/dL (0.6-1.0) Estimated GFR 51 Glucose 121 mg/dL H mg/dL (70-100) Calcium 10.3 mg/dL mg/dL (8.5-10.4) Medications Given: Discontinued Medications Sodium Chloride (Ns) 1,000 mls @ 0 mls/hr IV ONCE ONE PRN Reason: Wide Open Stop: 01/23/17 10:41 Last Admin: 01/23/17 10:46 Dose: 1,000 mls Lorazepam (Ativan Injection) 1 mg IVP EDNOW ONE Stop: 01/23/17 10:42 Last Admin: 01/23/17 10:47 Dose: 1 mg Departure - Departure Disposition: Home, Routine, Self-Care Clinical Impression: Abdominal distention Condition: Good Instructions: Abdominal Pain (ED) Additional Instructions: Abdominal Pain: Return to the Emergency Department immediately for increasing pain, fever, vomiting, or if not completely better in 8-12 hours. Referrals: MD JULIAN [Other] - As per Instructions
[2017-01-23 10:28] LABS: ANION GAP 18 mEq/L (8-16); CALCIUM 10.3 mg/dL (8.5-10.4); CARBON DIOXIDE 21 mEq/l (22-31); CHLORIDE 99 mEq/L (97-110); CREATININE 1.1 mg/dL (0.6-1.0); GLOMERULAR FILTRATION RATE 51; GLUCOSE 121 mg/dL (70-100); POTASSIUM 4.6 mEq/L (3.5-5.2); SODIUM 138 mEq/L (134-144)
[2017-01-23] MEDS ORDERED: IOPAMIDOL (ISOVUE-300) 100 ML BTL ONE (10:40)
[2017-01-23] MEDS ORDERED: NS 1,000 ML IV ONE (10:40)
[2017-01-23] MEDS ORDERED: LORazepam 2 MG/ML INJ IVP ONE (10:41)
[2017-01-23 11:46] VITALS: BP 111/74; PULSE 89; RESP 16; O2SAT 98
== END 2017-01-23 12:15 | disposition home or self-care (01) ==
DX: R14.0 Abdominal distension (gaseous) (principal); I50.9 Heart failure, unspecified; Z87.891 Personal history of nicotine dependence; Z79.82 Long term (current) use of aspirin; Z79.84 Long term (current) use of oral hypoglycemic drugs; Z79.01 Long term (current) use of anticoagulants; Z95.1 Presence of aortocoronary bypass graft; Z95.0 Presence of cardiac pacemaker
CPT/HCPCS: 74177; 96361; 96374; J2060; Q9967

== ENCOUNTER 2017-08-16 14:51 | Emergency (ER) | payer OTHER, MEDICAID ==
--- NOTE | 2017-08-16 15:02 | EDPHY ---
HPI/HX/ROS/PE/MDM Narrative: CHIEF COMPLAINT: High blood sugar HISTORY OF PRESENT ILLNESS: The patient is a 57 y/o female with a history of diabetes, CABG x 2, heart valve replacement, and a pacemaker complaining of high blood sugar for the past 3 days. On 08/13/17, 3 days ago, Dr. Merlos ordered fasting labs which revealed a blood glucose level of 508. Her blood sugar has remained high for the past 3 days. Today she saw Dr. Younger's nurse after having an echocardiogram who advised that the patient present to the emergency department for her high blood sugar. She is currently feeling tired, nauseous, and is having intermittent right upper quadrant muscle spasms. She last took her prescriptions last night. For the past three months, she has had cold-like symptoms including a cough, runny nose, and discolored flem. Her physician prescribed her Azithromycin which improved most of her symptoms. She finished this prescription around 1 week ago. No fever, chills, chest pain, shortness of breath, palpitations, vomiting, diarrhea, urinary complaints, headache, lightheadedness. REVIEW OF SYSTEMS: Aside from elements discussed in the HPI, a comprehensive 10-point review of systems was reviewed and is negative. PAST MEDICAL HISTORY: CABG x 2, heart valve replacement x 2, pacemaker, diabetes , hypercholesteremia, depression SOCIAL HISTORY: Sister at bedside, lives in [place], [facility] VITAL SIGNS: Reviewed by me. Occasional PAC on monitor GENERAL: Nervous, abrupt, pressured speech, well-developed, well-nourished, resting comfortably in no respiratory distress. HEENT: Atraumatic. Eyes: No icterus, no injection. Mouth: moist mucous membranes. No erythema or lesions. Neck: supple with no adenopathy. LUNGS: Clear to auscultation bilaterally, no wheezes, rhonchi or rales. CARDIAC: Regular pulse, no rubs, murmurs or gallops. ABDOMEN: Protuberant, soft, nontender, nondistended, bowel sounds normal. Did have right upper quadrant pain, now resolved. BACK: No CVA tenderness. EXTREMITIES: Scar on left leg from vein harvest. No trauma. No edema. Range of motion is normal throughout. NEURO: Alert and oriented, grossly nonfocal. SKIN: Warm and dry, no rash. PSYCHIATRIC: Normal mentation, no agitation. Portions of this note were transcribed by a nuclear medical tech. I personally performed a history, physical exam, medical decision making, and confirmed accuracy of information the transcribed note. ED Course: The patient is a 57 y/o female with a history of diabetes, CABG x 2, heart valve replacement, and a pacemaker presenting with a high blood sugar in the 500 's for the past 3 days. Labs and EKG ordered; 1L IV NS administered. 1530: Patient's POC glucose is 540; Chem 7 reveals potassium of 3.6. CO2 normal , no signs of DKA. Insulin and fluids given. 1530: 12-LEAD EKG: Please see the full report in [facility]. My interpretation: Atrial-sensed ventricular-paced rhythm with a rate of 96. There are no recent EKG's to compare this to. 1708: Repeat labs demonstrate low K. (2.8). Glucose down to 315. 60meq po potassium given. 1712: Reassessed patient and discussed laboratory and EKG findings. I have advised her to follow up with her primary care physician in the next 2 days without fail and take her medications for her diabetes. Return precautions provided; patient is comfortable with this plan. MDM: Diff dx considered included lab error, diabetes, DKA, hyperglycemia, stress, medication noncompliance. - Data Points Laboratory Results: Laboratory Results 08/16/17 15:15 08/16/17 15:15 Medications Given: Discontinued Medications Sodium Chloride (Ns) 1,000 mls @ 0 mls/hr IV ONCE ONE; Wide Open PRN Reason: Protocol Stop: 08/16/17 15:17 Last Admin: 08/16/17 15:33 Dose: 1,000 mls Insulin Human Regular (Humulin R) 10 unit IVP EDNOW ONE Stop: 08/16/17 15:41 Last Admin: 08/16/17 15:45 Dose: 10 units Potassium Chloride (Potassium Chloride Oral Liquid) 60 meq PO EDNOW ONE Stop: 08/16/17 17:06 Last Admin: 08/16/17 17:08 Dose: Not Given Potassium Chloride (Klor Packets) 60 meq PO EDNOW ONE Stop: 08/16/17 17:08 Last Admin: 08/16/17 17:08 Dose: 60 meq Potassium Chloride (Klor-Con) 60 meq PO EDNOW ONE Stop: 08/16/17 17:24 Last Admin: 08/16/17 17:25 Dose: 60 meq Point of Care Test Results: Chemistry 08/16/17 08/16/17 08/16/17 16:57 15:25 15:25 POC Sodium 133 mEq/L L mEq/L 129 mEq/L L mEq/L (135-145) (135-145) POC Potassium 2.8 mEq/L L mEq/L 3.4 mEq/L mEq/L (3.3-5.0) (3.3-5.0) POC Chloride 97 mEq/L mEq/L 88 mEq/L L mEq/L (97-110) (97-110) POC BUN 28 mg/dL H mg/dL 28 mg/dL H mg/dL (7-23) (7-23) POC Creatinine 0.9 mg/dL mg/dL 1.3 mg/dL H mg/dL (0.6-1.0) (0.6-1.0) POC Glucose 315 mg/dL H mg/dL 540 mg/dL H* mg/dL (70-100) (70-100) POC Troponin I 0.04 ng/mL ng/mL (0.00-0.08) ISTAT H&H 08/16/17 08/16/17 16:57 15:25 POC Hgb 13.6 gm/dL gm/dL 16.3 gm/dL gm/dL (12.6-16.3) (12.6-16.3) POC Hct 40 % % 48 % H % (38-47) (38-47) General Time Seen by Provider: 08/16/17 15:01 Initial Vital Signs: Initial Vital Signs Temperature (C) 36.4 C 08/16/17 14:51 Heart Rate 107 H 08/16/17 14:51 Respiratory Rate 16 08/16/17 14:51 Blood Pressure 124/75 H 08/16/17 14:51 O2 Sat (%) 93 08/16/17 14:51 O2 Delivery Mode Room Air Allergies/Adverse Reactions: No Known Allergies Allergy (Verified 01/23/17 09:24) Home Medications: Medication Instructions Recorded Aspirin EC [Aspirin EC 81 mg (*)] 81 mg PO HS 01/18/17 ARIPiprazole [Abilify 10 mg (*)] 10 mg PO HS #30 tab 01/21/17 Atorvastatin Calcium [Lipitor 40 40 mg PO HS #30 tab 01/21/17 mg (*)] Metformin HCl [Metformin 1000 mg] 1,000 mg PO HS #30 tablet 01/21/17 Metoprolol Succinate Xr [Toprol Xl 25 mg PO HS #30 tab 01/21/17 25 mg (*)] Venlafaxine Xr [Effexor Xr] 150 mg PO DAILY #30 cap 01/21/17 traZODone [traZODONE 100MG (*)] 100 mg PO HS #30 tab 01/21/17 ARIPiprazole [Abilify 5 mg (*)] 5 mg PO DAILY 08/16/17 Albuterol [Ventolin Hfa Inhaler] 2 puffs IH Q4 PRN 08/16/17 Dextroamphetamine/Amphetamine 20 mg PO 08/16/17 [Dextroamp-Amphetamin 20 mg Tab] Fluticasone Nasal [Flonase Nasal 1 sprays NASAL DAILY 08/16/17 [place] (RX)] Lisinopril [Zestril 10 mg (*)] 10 mg PO DAILY 08/16/17 Metoprolol Succinate Xr [Toprol Xl 50 mg PO DAILY 08/16/17 50 mg (*)] Montelukast Sodium [Singulair 10 10 mg PO DAILY@1800 08/16/17 mg (*)] Torsemide 20 mg PO 08/16/17 Venlafaxine Xr [Effexor Xr 75MG 75 mg PO DAILY 08/16/17 (*)] Departure - Departure Disposition: Home, Routine, Self-Care Clinical Impression: Hyperglycemia without ketosis Type 2 diabetes mellitus Qualifiers: Diabetes mellitus termite helper insulin use: without detention use Diabetes mellitus complication status: without complication Qualified Code(s): E11.9 - Type 2 diabetes mellitus without complications Condition: Good Instructions: Diabetic Hyperglycemia (ED) Additional Instructions: Follow-up with your primary doctor within 72 hours without fail, you have been referred to [facility]. Drink plenty of fluids. Take your diabetic medications as prescribed. Return to the Emergency Department for fever, chest pain, shortness of breath, increasing pain or other worsening of condition. Referrals: [facility],. [Clinic] - As per Instructions Report Scribed for: Monique Gallardo Report Scribed by: Fay Landaverde Date of Report: 08/16/17 Time of Report: 15:02
[2017-08-16] MEDS ORDERED: NS 1,000 ML IV ONE (15:16)
[2017-08-16 15:31] LABS: PLATELET COUNT 219 10^3/uL (150-400)
--- NOTE | 2017-08-16 15:32 | CPEKG ---
Heart Rate: 96 RR Interval: 625 P-R Interval: 180 QRSD Interval: 128 QT Interval: 412 QTC Interval: 521 P [place]: 56 QRS [place]: 108 EKG Severity - ABNORMAL ECG - EKG Impression: ATRIAL-SENSED VENTRICULAR-PACED RHYTHM Electronically Signed By: Kj Younger 17-Aug-2017 16:27:44
[2017-08-16] MEDS ORDERED: INSULIN REGULAR HUMAN 100 UNIT/ML UNIT IVP ONE (15:40)
[2017-08-16] MEDS ORDERED: POTASSIUM CL 20 MEQ PKT ONE (17:03)
[2017-08-16] MEDS ORDERED: POTASSIUM CL 20 MEQ/15 ML UDCUP PO ONE (17:05)
[2017-08-16] MEDS ORDERED: POTASSIUM CL 20 MEQ PKT PO ONE (17:07)
[2017-08-16] MEDS ORDERED: POTASSIUM CL 20 MEQ TAB ONE (17:21)
[2017-08-16] MEDS ORDERED: POTASSIUM CL 20 MEQ TAB PO ONE (17:23)
[2017-08-16 17:56] VITALS: BP 98/54
--- NOTE | 2017-08-17 17:43 | ASDISCHSUM ---
Discharge Information Plan Status:Home with No Needs Medically Cleared to Leave: Discharge Date:08/16/2017 05:56 PM D/C Disposition:Home, Routine, Self-Care ADT D/C Disposition:Home, Routine, Self-Care Projected Discharge Date:08/16/2017 05:56 PM Transportation at D/C:Friend Discharge Delay Reason: Follow-Up Date:08/16/2017 05:56 PM Discharge Slot: Final Diagnosis: Placement Information Patient Contact Information Contact Name:AARON Relationship:Sister Address:[address] [place] [address] City:[place] Alternate Phone: [facility]/Zip Code:[place] [address] Email: Financial Information Financial Class:Medicare Primary Plan Desc:MEDICARE OUTPATIENT Primary Plan Number:[id number] Secondary Plan Desc:[place] Secondary Plan Number:[id number] Assessment Information [facility] CM Progress Note CM Note CM Note Notes: Followed up with [facility] today to get patient an appt this week. Spoke w/Zenia and she states someone at already reached out to the patient and scheduled her with Erica Overton tomorrow 08/18/17 at 2:40pm. Pt had not been seen at for quite awhile and her previous PCP retired. Pt has an appt on 08/19/17 at 1:30pm and wanted to make sure she saw a PCP before that appt. CM available for further assistance if needed. Date Signed: 08/17/2017 05:40 PM Electronically Signed By:Tiana Artis RN Intervention Information
== END 2017-08-16 17:56 | disposition home or self-care (01) ==
DX: E11.65 Type 2 diabetes mellitus with hyperglycemia (principal); E86.9 Volume depletion, unspecified; Z79.82 Long term (current) use of aspirin; Z79.84 Long term (current) use of oral hypoglycemic drugs; Z95.0 Presence of cardiac pacemaker
CPT/HCPCS: 93005; 93306; 96361; 96374; 99284; J1815; 82435-PO; 82565-PO; 82947-PO; 84132-PO; 84295-PO; 84484-PO; 84520-PO; 85014-PO

== ENCOUNTER → 2017-08-19 | Outpatient (CLI) | payer OTHER, MEDICAID | LOC: BHFA 14:00 | PROVIDERS: ATTEND Internal Medicine Cardiovascular Disease | DX: I25.810 Atherosclerosis of coronary artery bypass graft(s) without angina pectoris (principal); I50.22 Chronic systolic (congestive) heart failure; R53.82 Chronic fatigue, unspecified; Z95.2 Presence of prosthetic heart valve; R06.02 Shortness of breath ==

== ENCOUNTER 2018-04-20 20:06 | Emergency (ER) | payer OTHER, MEDICAID ==
[2018-04-20 20:24] LABS: PLATELET COUNT 191 10^3/uL (150-400)
[2018-04-20 20:30] LABS: INR 0.88 (0.83-1.16); PROTIME(PATIENT) 12.2 SEC (12.0-15.0)
--- NOTE | 2018-04-20 20:30 | CPEKG ---
Test Reason : OPEN Blood Pressure : / mmHG Vent. Rate : 110 BPM Atrial Rate : 110 BPM P-R Int : 116 ms QRS Dur : 136 ms QT Int : 409 ms P-R-T Axes : 201 -83 -08 degrees QTc Int : 554 ms Ventricular-paced rhythm unchanged from previous Confirmed by Jonnathan To ([id number]) on 04/20/2018 8:30:35 PM Referred By: JONNATHAN TO Confirmed By:Jonnathan To
--- NOTE | 2018-04-20 20:30 | EDPHY ---
H & P Stated Complaint: STROKE ALERT Time Seen by Provider: 04/20/18 20:10 HPI/ROS: CHIEF COMPLAINT: Stroke alert HISTORY OF PRESENT ILLNESS: Patient is a 58-year-old female with history of type 2 diabetes, bipolar, 2 vessel CABG, mitral valve repair with bioprosthetic and tricuspid valve primary repair, pacemaker, CHF with ejection fraction 20% and reported history of traumatic brain injury. She lives in [place]. She was getting a facial around 630 this evening when she noticed difficulty with her right arm. She called EMS who arrived and called a stroke alert. Her sugar for them was 340. Here it is 320. She denies chest pain or shortness of breath. She has been on Coumadin in the past but denies being on Coumadin now. Severity: Severe Modifying factors: No pain REVIEW OF SYSTEMS: Constitutional: denies: chills, fever, recent illness, recent injury EENTM: denies: blurred vision, double vision, nose congestion Respiratory: denies: cough, shortness of breath Cardiac: denies: chest pain, irregular heart rate, lightheadedness, palpitations Gastrointestinal/Abdominal: denies: abdominal pain, diarrhea, nausea, vomiting, blood streaked stools Genitourinary: denies: dysuria, frequency, hematuria, pain Musculoskeletal: See HPI Skin: denies: lesions, rash, jaundice, bruising Neurological: See HPI Hematologic/Lymphatic: denies: blood clots, easy bleeding, easy bruising Immunologic/allergic: denies: HIV/AIDS, transplant 10 systems reviewed and negative except as noted EXAM: GENERAL: Calm, alert HEAD: Atraumatic, normocephalic. EYES: Pupils equal round and reactive to light, extraocular movements intact, sclera anicteric, conjunctiva are normal. Moves eyes in all directions ENT: TMs normal, nares patent, oropharynx clear without exudates. Moist mucous membranes. NECK: Normal range of motion, supple without lymphadenopathy or JVD. LUNGS: Breath sounds clear to auscultation bilaterally and equal. No wheezes rales or rhonchi. HEART: Regular rate and rhythm without murmurs, rubs or gallops. ABDOMEN: Soft, nontender, normoactive bowel sounds. No guarding, no rebound. No masses appreciated. BACK: No CVA tenderness, no spinal tenderness, step-offs or deformities EXTREMITIES: Normal range of motion, no pitting or edema. No clubbing or cyanosis. NEUROLOGICAL: NIH stroke score 7. Cranial nerves II through XII grossly intact. Slurred speech and some trouble finding words, 3/5 strength in right arm, 4-5 in right leg. Normal in left arm and leg. normal sensation, normal reflexes PSYCH: Normal mood, normal affect. SKIN: Warm, dry, normal turgor, no visible rashes or lesions. Source: Patient, EMS, Old records - Personal History Current Tetanus Diphtheria and Acellular Pertussis (TDAP): Yes Tetanus Vaccine Date: < 10 years - Medical/Surgical History Hx Asthma: No Hx Chronic Respiratory Disease: No Hx Diabetes: Yes Hx Cardiac Disease: No Hx Renal Disease: No Hx Cirrhosis: No Hx Alcoholism: No Hx HIV/AIDS: No Hx Splenectomy or Spleen Trauma: No Other PMH: DM2, depression, anxiety, Herpes - Social History Smoking Status: Former smoker Constitutional: Initial Vital Signs Heart Rate 111 H 04/20/18 20:21 Respiratory Rate 16 04/20/18 20:21 Blood Pressure 138/84 H 04/20/18 20:21 O2 Sat (%) 98 04/20/18 20:21 O2 Delivery Mode Room Air Allergies/Adverse Reactions: No Known Allergies Allergy (Verified 04/20/18 20:25) Home Medications: Medication Instructions Recorded Venlafaxine HCl [Venlafaxine HCl 225 mg PO DAILY 04/21/16 ER] metFORMIN HCL [Glucophage 500 mg 500 mg PO DAILY 04/21/16 (*)] traZODone [traZODONE 100MG (*)] 100 mg PO HS 04/21/16 Acetaminophen [Tylenol 325mg (*)] 650 mg PO Q4HRS PRN #0 tab 05/09/16 Aspirin [Aspirin 81mg (*)] 81 mg PO DAILY #0 tab.chew 05/09/16 Atorvastatin Calcium [Lipitor 40 40 mg PO DAILY #0 tab 05/09/16 mg (*)] Carvedilol [Coreg (*)] 3.125 mg PO BIDMEAL #0 tab 05/09/16 Hydrocodone/APAP 5/325 [[place] 1 tab PO Q4HRS PRN #0 tab 05/09/16 5/325 (*)] Insulin Glargine [Lantus 100 8 units SC HS #0 ml 05/09/16 UNITS/ML] Lisinopril [Zestril 5 mg (*)] 5 mg PO DAILY@1200 #0 tab 05/09/16 Polyethylene Glycol 3350 [Miralax 17 gm PO DAILY PRN #0 pkt 05/09/16 17 gm (*)] Sennosides/Docusate Sodium 1 - 2 tab PO BID PRN #0 tab 05/09/16 [Senokot-S] Spironolactone [Aldactone 25 MG 25 mg PO DAILY #0 tab 05/09/16 (*)] Torsemide [Demadex] 20 mg PO DAILY AT 10AM #0 tab 05/09/16 Warfarin Sodium [Coumadin 2MG (*)] 05/09/16 traMADol [Ultram 50 mg (*)] 50 - 100 mg PO Q4HRS PRN #0 tab 05/09/16 Aspirin EC [Aspirin EC 81 mg (*)] 81 mg PO HS 01/18/17 ARIPiprazole [Abilify 10 mg (*)] 10 mg PO HS #30 tab 01/21/17 Atorvastatin Calcium [Lipitor 40 40 mg PO HS #30 tab 01/21/17 mg (*)] Metformin HCl [Metformin 1000 mg] 1,000 mg PO HS #30 tablet 01/21/17 Metoprolol Succinate Xr [Toprol Xl 25 mg PO HS #30 tab 01/21/17 25 mg (*)] Venlafaxine Xr [Effexor Xr] 150 mg PO DAILY #30 cap 01/21/17 traZODone [traZODONE 100MG (*)] 100 mg PO HS #30 tab 01/21/17 ARIPiprazole [Abilify 5 mg (*)] 5 mg PO DAILY 08/16/17 Albuterol [Ventolin Hfa Inhaler] 2 puffs IH Q4 PRN 08/16/17 Dextroamphetamine/Amphetamine 20 mg PO 08/16/17 [Dextroamp-Amphetamin 20 mg Tab] Fluticasone Nasal [Flonase Nasal 1 sprays NASAL DAILY 08/16/17 [place] (RX)] Lisinopril [Zestril 10 mg (*)] 10 mg PO DAILY 08/16/17 Metoprolol Succinate Xr [Toprol Xl 50 mg PO DAILY 08/16/17 50 mg (*)] Montelukast Sodium [Singulair 10 10 mg PO DAILY@1800 08/16/17 mg (*)] Torsemide 20 mg PO 08/16/17 Venlafaxine Xr [Effexor Xr 75MG 75 mg PO DAILY 08/16/17 (*)] Medical Decision Making - Diagnostics EKG Interpretation: An EKG obtained and was read and documented in trace view. Please see trace view for full reading and report. Paced ventricular rhythm, Imaging Results: Imaging Impressions Chest X-Ray 04/20/18 20:09 Impression: 1. Query low-grade congestive heart failure. 2. See above report for additional findings. Head CT 04/20/18 20:09 Impression: Normal CT scan of the head. No evidence for hemorrhage or acute ischemia. Results called and discussed with JONNATHAN TO M.D. on 04/20/2018 at 20:34. Head CTA 04/20/18 20:09 Impression: 1. Negative for hemodynamically significant stenosis or dissection. 2. Dominant right vertebral artery. CT Angiography of the Head With Attention to the [place] Reason for examination: Altered mental status; stroke alert. Technique: A spiral acquisition was performed from the base of the brain to the vertex during rapid intravenous administration of 85 mL of Omnipaque 350. This contrast volume was utilized for evaluation of the neck and head. Axial images are obtained at 0.6 mm thickness and the examination is reviewed on the workstation in multiple window and level settings. Sagittal and coronal reformats are performed and three-dimensional reformations are performed by the radiologist on the workstation. Dose reduction techniques were utilized. Findings: There is excellent arterial opacification. The great vessels at the base of the brain are normal in appearance. The anterior and middle cerebral arteries appear normal. The [place] is intact with both anterior and posterior communicating arteries identified. The basilar artery as well as posterior cerebral arteries are normal. No regions of stenosis are identified. No hemorrhages are seen and no vascular malformations are identified. No areas of abnormal perfusion are identified and there are no findings to suggest cortical ischemia. Impression: Normal CT angiography of the head with attention to the great vessels of the [place]. Note: All stenoses are calculated using NASCET Criteria. Results called and discussed with JONNATHAN TO M.D. on 04/20/2018 at 21:19. Neck CTA 04/20/18 20:09 Impression: 1. Negative for hemodynamically significant stenosis or dissection. 2. Dominant right vertebral artery. CT Angiography of the Head With Attention to the [place] Reason for examination: Altered mental status; stroke alert. Technique: A spiral acquisition was performed from the base of the brain to the vertex during rapid intravenous administration of 85 mL of Omnipaque 350. This contrast volume was utilized for evaluation of the neck and head. Axial images are obtained at 0.6 mm thickness and the examination is reviewed on the workstation in multiple window and level settings. Sagittal and coronal reformats are performed and three-dimensional reformations are performed by the radiologist on the workstation. Dose reduction techniques were utilized. Findings: There is excellent arterial opacification. The great vessels at the base of the brain are normal in appearance. The anterior and middle cerebral arteries appear normal. The [place] is intact with both anterior and posterior communicating arteries identified. The basilar artery as well as posterior cerebral arteries are normal. No regions of stenosis are identified. No hemorrhages are seen and no vascular malformations are identified. No areas of abnormal perfusion are identified and there are no findings to suggest cortical ischemia. Impression: Normal CT angiography of the head with attention to the great vessels of the [place]. Note: All stenoses are calculated using NASCET Criteria. Results called and discussed with JONNATHAN TO M.D. on 04/20/2018 at 21:19. Imaging: Discussed imaging studies w/ manager call Radiologist ED Course/Re-evaluation: 8:35 p.m. the patient has been evaluated by [facility] Dr. Neri. He told the patient that this is more consistent with a stress response but that she could receive tPA if she accepts the risks. The patient declined tPA. During the exam she was rather inconsistent in her exam. She but occasional use her hand to talk a right but then have trouble moving it during the examination. She also spontaneously raised her right arm up in the air and then lowered it with her left hand and said "I do not know what that was". Will proceed with CT angiogram and observation. Will add alcohol level. She does admit to alcohol abuse history. 9:00 a.m. the patient was able to ambulate to the bathroom without difficulty or noticeable weakness. 920 p.m. the patient's exam continues to be consistent. She now has no pronator drift and is able to lift her leg off the bed. She is speaking clearly. She continues to however to complain of occasional floppiness in her right arm. She thinks that she is having anxiety and is requesting Ativan. She also is requesting fluids. No trouble with swallowing. Discussed CT angio report. 9:55 p.m. the patient is sleeping. She is moving all extremities without difficulty. She states that she will get an Uber to go home. She is asking to sleep a little longer. 10:30 p.m. Patient continues to sleep but easily arousable. Moving all extremities. Ambulatory without difficulty. Still remains slightly tachycardic. She denies chest pain or palpitations. No fevers. Will continue to hydrate and observe. Care transferred to Dr. Wisodm at shift change. Differential Diagnosis: Partial list of the Differential diagnosis considered include but were not limited to; anxiety reaction, conversion disorder, CVA, TIA and although unlikely based on the history and physical exam, I also considered infection, trauma, hemorrhage, spinal cord injury. I discussed these differential diagnoses and the plan with the patient as well as the usual and expected course. The patient understands that the diagnosis is provisional and that in medicine we are not always correct and that further workup is often warranted. Usual and customary warnings were given. All of the patient's questions were answered. The patient was instructed to return to the emergency department should the symptoms at all worsen or return, otherwise to followup with the physician as we discussed. - Data Points Laboratory Results: Laboratory Results 04/20/18 20:17 04/20/18 20:17 04/20/18 04/20/18 04/20/18 21:02 20:17 20:17 WBC RBC Hgb Hct MCV MCH MCHC RDW Plt Count MPV Neut % (Auto) Lymph % (Auto) Davis % (Auto) Eos % (Auto) Baso % (Auto) Nucleat RBC Rel Count Absolute Neuts (auto) Absolute Lymphs (auto) Absolute Monos (auto) Absolute Eos (auto) Absolute Basos (auto) Absolute Nucleated RBC Immature Gran % Immature Gran # PT INR APTT Sodium 133 mEq/L L mEq/L (135-145) Potassium 4.4 mEq/L mEq/L (3.5-5.2) Chloride 104 mEq/L mEq/L (97-110) Carbon Dioxide 23 mEq/l mEq/l (22-31) Anion Gap 6 mEq/L mEq/L (6-14) BUN 34 mg/dL H mg/dL (7-23) Creatinine 0.5 mg/dL L mg/dL (0.6-1.0) Estimated GFR > 60 Glucose 307 mg/dL H mg/dL (70-100) Calcium 9.9 mg/dL mg/dL (8.5-10.4) Total Bilirubin 0.2 mg/dL mg/dL (0.1-1.4) AST 28 IU/L IU/L (14-46) ALT 48 IU/L IU/L (9-52) Alkaline Phosphatase 157 IU/L H IU/L (38-126) Total Protein 7.3 g/dL g/dL (6.3-8.2) Albumin 4.2 g/dL g/dL (3.5-5.0) Urine Opiates Screen NEGATIVE (NEGATIVE) Urine Barbiturates NEGATIVE (NEGATIVE) Ur Phencyclidine Scrn NEGATIVE (NEGATIVE) Ur Amphetamine Screen NEGATIVE (NEGATIVE) U Benzodiazepines Scrn NEGATIVE (NEGATIVE) Urine Cocaine Screen NEGATIVE (NEGATIVE) U Marijuana (THC) Screen NEGATIVE (NEGATIVE) Ethyl Alcohol < 10 mg/dL mg/dL (0-10) 04/20/18 04/20/18 20:17 20:17 WBC 9.03 10^3/uL 10^3/uL (3.80-9.50) RBC 4.84 10^6/uL 10^6/uL (4.18-5.33) Hgb 14.8 g/dL g/dL (12.6-16.3) Hct 43.6 % % (38.0-47.0) MCV 90.1 fL fL (81.5-99.8) MCH 30.6 pg pg (27.9-34.1) MCHC 33.9 g/dL g/dL (32.4-36.7) RDW 12.6 % % (11.5-15.2) Plt Count 191 10^3/uL 10^3/uL (150-400) MPV 10.4 fL fL (8.7-11.7) Neut % (Auto) 70.8 % % (39.3-74.2) Lymph % (Auto) 18.2 % % (15.0-45.0) Davis % (Auto) 8.9 % % (4.5-13.0) Eos % (Auto) 1.1 % % (0.6-7.6) Baso % (Auto) 0.4 % % (0.3-1.7) Nucleat RBC Rel Count 0.0 % % (0.0-0.2) Absolute Neuts (auto) 6.40 10^3/uL 10^3/uL (1.70-6.50) Absolute Lymphs (auto) 1.64 10^3/uL 10^3/uL (1.00-3.00) Absolute Monos (auto) 0.80 10^3/uL 10^3/uL (0.30-0.80) Absolute Eos (auto) 0.10 10^3/uL 10^3/uL (0.03-0.40) Absolute Basos (auto) 0.04 10^3/uL 10^3/uL (0.02-0.10) Absolute Nucleated RBC 0.00 10^3/uL 10^3/uL (0-0.01) Immature Gran % 0.6 % % (0.0-1.1) Immature Gran # 0.05 10^3/uL 10^3/uL (0.00-0.10) PT 12.2 SEC SEC (12.0-15.0) INR 0.88 (0.83-1.16) APTT 23.9 SEC SEC (23.0-38.0) Sodium Potassium Chloride Carbon Dioxide Anion Gap BUN Creatinine Estimated GFR Glucose Calcium Total Bilirubin AST ALT Alkaline Phosphatase Total Protein Albumin Urine Opiates Screen Urine Barbiturates Ur Phencyclidine Scrn Ur Amphetamine Screen U Benzodiazepines Scrn Urine Cocaine Screen U Marijuana (THC) Screen Ethyl Alcohol Medications Given: Discontinued Medications Sodium Chloride (Ns) 1,000 mls @ 0 mls/hr IV EDNOW ONE; Wide Open PRN Reason: Protocol Stop: 04/20/18 21:23 Last Admin: 04/20/18 21:33 Dose: 1,000 mls Sodium Chloride (Ns) 1,000 mls @ 0 mls/hr IV ONCE ONE; Wide Open PRN Reason: Protocol Stop: 04/20/18 22:27 Last Admin: 04/20/18 22:27 Dose: 1,000 mls Insulin Human Regular (Humulin R) 5 unit IVP EDNOW ONE Stop: 04/20/18 21:27 Last Admin: 04/20/18 21:34 Dose: 5 units Lorazepam (Ativan Injection) 1 mg IVP EDNOW ONE Stop: 04/20/18 21:23 Last Admin: 04/20/18 21:33 Dose: 1 mg Departure - Departure Disposition: Home, Routine, Self-Care Clinical Impression: Anxiety Condition: Fair Instructions: Anxiety (ED) Referrals: Patient,NotPresent [Primary Care Provider] - As per Instructions Sophia Eisenberg MD [Medical Doctor] - 2-3 days without fail
[2018-04-20] MEDS ORDERED: NS 1,000 ML IV ONE ×2 (21:22→22:26)
[2018-04-20] MEDS ORDERED: LORazepam 2 MG/ML INJ IVP ONE (21:22)
[2018-04-20] MEDS ORDERED: INSULIN REGULAR HUMAN 100 UNIT/ML UNIT IVP ONE (21:26)
[2018-04-21] MEDS ORDERED: ACETAMINOPHEN 325 MG TAB PO PRN (06:54)
[2018-04-21] MEDS ORDERED: ONDANSETRON 4 MG/2 ML VIAL IVP PRN (06:54)
[2018-04-21] MEDS ORDERED: ONDANSETRON DISINTEGRATING 4 MG TAB PO PRN (06:54)
[2018-04-21] MEDS ORDERED: diphenhydrAMINE 25 MG CAP PO PRN (07:05)
[2018-04-21] MEDS ORDERED: LORazepam 0.5 MG TAB PO PRN (07:05)
[2018-04-21] MEDS ORDERED: ALBUTEROL 3 ML DEYVIAL IH PRN (07:05)
[2018-04-21] MEDS ORDERED: D50W 25 GM/50 ML SYR IVP PRN (08:45)
[2018-04-21] MEDS ORDERED: FUROSEMIDE 40 MG/4 ML VIAL IVP SCH (09:00)
[2018-04-21] MEDS ORDERED: NICOTINE 21 MG/24 HR PATCH TD SCH (09:00)
[2018-04-21] MEDS ORDERED: ENOXAPARIN 40 MG/0.4 ML SYR SC SCH (09:00)
[2018-04-21] MEDS ORDERED: ASPIRIN 81 MG CHEWABLE TAB PO SCH (09:00)
[2018-04-21] MEDS ORDERED: INSULIN REGULAR HUMAN 100 UNIT/ML UNIT ONE (09:35)
--- NOTE | 2018-04-21 10:05 | GHP ---
[f rep st] HISTORY AND PHYSICAL DATE OF ADMISSION: 04/21/2018 PCP: [facility]. SOURCE: Patient is a fair historian, able to provide majority of the review of systems. EMR was reviewed, as the patient has extensive cardiac history. Case discussed with ED provider. CHIEF COMPLAINT: Aphasia. HISTORY OF PRESENT ILLNESS: This is a pleasant 58-year-old female with past medical history significant for bipolar 2 disorder, depression and anxiety, diabetes, type 2, history of opiate and benzodiazepine dependence, TBI, diastolic and systolic CHF with history of dilated cardiomyopathy, status post tricuspid and mitral valve bioprosthesis, CABG, who presents to the emergency department today with complaints of word-finding difficulties and right arm weakness. Symptom onset was approximately 6:30. She lives in [place], and EMS was called, calling Stroke Alert. Patient was found to have elevated blood sugars when she arrived to the emergency department. Patient was noted to have variable findings on her exam. [facility] was consulted. TPA was offered, but patient declined. During her stay in the emergency department, patient was ambulating without any difficulties and did not have any noticeable difficulties with her speech. She was given Ativan in the emergency department and slept for several hours. Patient was monitored overnight. However, she continued to complain of word-finding difficulties. She did not have any additional complaints of right arm weakness. Patient underwent CT head, CTA head and neck which were unremarkable for severe disease. Patient was previously on Coumadin status post valvuloplasty and CABG but completed a 3- month course. Additionally, patient notes some increased shortness of breath. She reports that she has also had some increasing abdominal distention. She denies any lower extremity edema. Patient reports that she held her Lasix for several days but restarted today. She denies any fevers or chills. Occasional cough, nonproductive. REVIEW OF SYSTEMS: Ten systems reviewed, negative except as noted above. ALLERGIES: No known drug allergies. HOME MEDICATIONS: Med review pending by Pharmacy but as available in EMR: HCTZ 12.5 mg daily, Tricor 48 daily, atorvastatin 40 daily, aspirin 81 mg daily , Abilify 5 mg daily, Singulair 10 mg daily, Adderall 20 mg p.o. t.i.d., trazodone 100 mg p.o. at h.s., Effexor, Lantus, Lasix. PAST MEDICAL HISTORY: Significant for bipolar 2 disorder, depression, anxiety, history of TBI, diabetes, type 2, history of benzodiazepine and opiate abuse, systolic/diastolic CHF with history of dilated cardiomyopathy, pulmonary hypertension, history of sacral decubitus, valvular heart disease status post tricuspid and mitral valve replacements, bioprosthetic. PAST SURGICAL HISTORY: CABG, valve replacement, and permanent pacemaker. FAMILY HISTORY: Negative for CVA. SOCIAL HISTORY: Patient lives alone. She is concerned about her cat. She does not smoke, drink, or utilize any illicit drugs. She does have a sister who lives some distance away from [place]. She does continue to smoke 1 pack per day. She denies any alcohol or illicit drugs. CODE STATUS: Full. PHYSICAL EXAM: VITAL SIGNS: Upon arrival, blood pressure 130/84, heart rate 111, respiratory rate 16, O2 sat 98% on room air, temperature 36.8. Vitals available currently: Blood pressure 135/79, heart rate is 103, respiratory rate 14, O2 sat is 97% on room air, temperature 36.7. GENERAL: No acute distress. Frail adult female appears older than stated age. Is lying quietly in bed. She does appear chronically ill. She does have some increased work of breathing even while sleeping. HEAD: Normocephalic, atraumatic. Patient does have some abrasions on the right side of her cheek. EYES: Extraocular muscles are grossly intact. Pupils equal, round, with decreased reactivity to light bilaterally but symmetric. No scleral icterus or conjunctival injection. ENT: Mucous membranes appear moist. Poor dentition. No nasal discharge. NECK: Supple. Trachea midline. No JVD. CV: Tachycardic in the 100s. Occasionally irregular beat. Slightly distant heart sounds. No murmurs, rubs, or gallops appreciated with limited exam. RESPIRATORY: Increased work of breathing. Diminished breath sounds bibasilarly with occasional crackles. No wheezing or rhonchi. ABDOMEN: Distended, soft. Hypoactive bowel sounds. : No suprapubic tenderness to palpation. No Treviño catheter in place. EXTREMITIES: Patient without any cyanosis, clubbing, or edema. Patient with 1+ pedal pulses bilaterally, symmetric. NEURO: Cranial nerves 2 through 12 are intact and symmetric bilaterally. Patient does have some word-finding difficulties during the interview and occasional stuttering. EXTREMITIES: Have symmetric strength , 5/5. PSYCH: Patient does appear a little bit anxious, but she is pleasant and cooperative at this time. She does not have any disorganized thinking. She does get frustrated during conversation when she starts to have difficulties with the flow of her words, as she does appear to struggle with word finding. She is otherwise resting calmly outside of the active interview. LABORATORY STUDIES: WBC is 9.03, H and H are 14.8 and 43.6, MCV 90.1, platelet count is 191. No bands. PT is 12.2, INR 0.88, PTT is 23.9. Sodium is 133, potassium 4.4, chloride is 104, CO2 23, anion gap 6, BUN 34, creatinine 0.5, GFR greater than 60, glucose 307, calcium is 9.9, total bili 0.2 , ALT is 48, AST is 28, alk phos 157, total protein 7.3, albumin is 4.2. U-tox is negative. Alcohol level is negative. Chest x-ray image report reviewed. Cardiomegaly, pulmonary vascular congestion , postoperative cardiac changes, pacemaker. No effusions or consolidations. CT head, CTA head and chest negative for evidence of acute changes. EKG reviewed myself. V-paced rhythm, 110. ASSESSMENT AND PLAN: A 58-year-old female with a significant cardiac history, diabetes, bipolar disorder, presents to emergency department with complaints of right arm weakness and aphasia. 1. Aphasia. Patient's symptoms have been inconsistent during her ER stay. She has not had any difficulties in ambulation or mobility, and her neurologic exam is otherwise nonfocal. [facility] evaluated the patient and offered TPN, but patient declined. CT, CTA head and neck have been negative. Patient is not a candidate for MRI secondary to her history of pacemaker. Neurology consultation this morning. Echocardiogram has been ordered. Continue to monitor patient with neuro checks. Speech therapy evaluation. Ativan p.r.n. 2. Decompensated systolic/diastolic congestive heart failure. Patient reports that she was due to see Dr. Merlos today in clinic and also have an echocardiogram. We will obtain an echocardiogram. Initiate diuretic therapy. Patient reports that she has inconsistently taken her Lasix and just recently restarted. Fluid restrict, sodium restrict. Patient without any hypoxia but does have some increased work of breathing and tachycardia. We will continue to monitor. No evidence of pneumonia. 3. Diabetes, type 2. Blood sugar is elevated. Patient listed Lantus, but pending pharmacy review, we will place patient on an insulin sliding scale. 4. Depression, anxiety, bipolar disorder. Resume patient's home medications when med rec completed. Ativan available p.r.n. 5. Hyponatremia likely due to hypervolemia and diuretic therapy as noted above. Elevated alkaline phosphatase likely a component of vascular congestion that has been noted previously. Liver function tests otherwise normal. Continue to monitor. 6. Fluid, electrolyte, nutrition. Saline lock intravenous. Fluid restrict of 1500 mL per day. Cardiac diet, low sodium. 7. Prophylaxis. Sequential compression devices, Lovenox. CODE STATUS: Full. DISPOSITION: Patient admitted to observation status pending additional studies as noted and diuretic therapy. /[id number]/MODL [id number]
[2018-04-21 11:41] VITALS: BP 135/65
[2018-04-21] MEDS ORDERED: INSULIN LISPRO 100 UNIT/ML SC SCH ×2 (12:00→21:00)
--- NOTE | 2018-04-21 12:15 | GCON ---
[f rep st] CONSULTATION NEUROLOGY CONSULT DATE OF CONSULTATION: 04/21/2018 REFERRING PHYSICIAN: Kayla Hewitt MD CHIEF COMPLAINT: Transient neurologic symptoms. HISTORY OF PRESENT ILLNESS: The patient is a very pleasant 58-year-old lady with type 2 diabetes, bipolar disorder, anxiety, and depression, along with a significant cardiac history with 2-vessel bypass, mitral valve repair, and bioprosthetic tricuspid valve. She has a pacemaker and congestive heart failure with a low ejection fraction, and had been on transient oral anticoagulation postoperatively, but now is maintained on aspirin 81 mg daily along with her other medications. She states that around 6:30 p.m., she had trouble thinking of words, without other symptoms initially. She then felt like there was some difficulty with her right arm with some numbness and tingling. She called EMS, and she had a full stroke alert. The patient had blood sugars in the 300s when she came in and was evaluated by [facility]. They felt that it may be more of a stress anxiety-type response, but thought it would be reasonable to administer tPA if she accepted the risks. The patient refused tPA. It was noted multiple times that her exam was inconsistent, both by the ED and by Telemedicine/Neurology. Specifically, she would not use her right upper extremity on command, but spontaneously in conversation she would use it totally normally, suggestive of a functional abnormality. The patient then complained of anxiety, and requested Ativan and fell asleep. She wanted to go home, and then woke up and was completely asymptomatic, moving all extremities equally, and walking around the ER without any abnormalities. The plan was to discharge home, but then early in the morning she complained again of some word- finding difficulty, and it was decided to admit her. She had a CTA of the head and neck, which showed no large vessel occlusion. Head CT noncontrast showed no early signs of early or chronic infarct. The patient has a [employer] pacemaker and is unable to get MRI brain. Radiology did call [employer] and confirmed that MRI was not compatible with this device. Over the course of the morning, she has had no further symptoms and again wants to go home. She feels like her symptoms have resolved. A 10-point review of systems was done and only pertinent to the HPI. For past medical history, social history, family history, home medications, and allergies, see Dr. Hewitt's note. PHYSICAL EXAM: VITAL SIGNS: Blood pressure is 114/67, afebrile at 36.7, and heart rates in the 70s. GENERAL: The patient seems anxious and upset, but otherwise appears well nourished. NEUROLOGIC EXAMINATION: On language exam, she names 5/5, follows commands 5/5, and repeats 5/5. There is no aphasia on formal testing. On cranial nerve exam , normal cranial exam 2 through 7 and 12. There is no dysarthria. On motor exam, she has no focal weakness. Tone is normal. Reflexes normal. Toes are downgoing bilaterally. On sensory exam, she has normal light touch in all 4 extremities. We do a full gait assessment, which is essentially normal. There is a mild orthopedic morphology, which she states is related to some hip pain. Otherwise, her gait is stable without ataxia. Romberg is negative. IMPRESSION/PLAN: 1. Transient neurologic symptoms. 2. Cardiac disease. 3. Diabetes type 2. 4. Bipolar disorder 5. Patient refusing admission against medical advice (AMA) The patient's presentation is not clear. Based on her evaluation overnight in the emergency department, there were inconsistencies in her exam, documented both by the emergency department staff and by [facility]. At this point , the plan is to admit the patient for further monitoring and testing as indicated. However, the patient is adamant that she refuses inpatient admission and wishes to leave against medical advice (AMA). We discussed at length regarding risks, benefits, and alternatives of treatment , including the risk of and disability of leaving against medical advice. Despite this discussion with the patient and her sister, Veena, the patient has decided to leave against medical advice. I provided her the paperwork, which I co-signed and reviewed with her in detail all of the above. We will give her a 21-day course of Plavix 75 mg daily in addition to the baby aspirin for possible transient ischemic attack/small vessel infarction. We discussed potential risks, benefits, and alternatives of Plavix, including the risk of bleeding and hemorrhage. After she completes the 21 days of Plavix, she will maintain on aspirin daily. She has also agreed to follow up with her senior scientist as soon as possible to review any further testing such as echocardiogram that may be needed, and to sample her pacemaker for any paroxysmal atrial fibrillation, which would indicate oral anticoagulation. She understands all of this. Further cardiac testing and ECG monitoring per Cardiology. No further recommendations as she is discharging from the emergency room against medical advice (AMA). I have informed the emergency department physician on staff, the emergency department charge nurse, and the hospitalist regarding her decision to leave against medical advice. I also offered to follow up with her and gave her our contact information to review all the above. Seventy total minutes of floor time in review of overnight records; over 50% in direct counseling and coordination of care. /[id number]/MODL MTDD
--- NOTE | 2018-04-21 16:08 | ECHO ---
[email or web address] [address] [address] Main: [phone] Fax: Transthoracic Echocardiogram Name: ROSINA GASTON MR#: [id number] Study Date: 04/21/2018 Study Time: 10:06 AM Date of : 1960 Age: 58 year(s) Height: 154.9 cm (61 in.) Weight: 61.24 kg (135 lb.) BSA: 1.6 m2 Gender: Female Examination: Echo Indication: Shortness of breath, CHF, Hx of MVR, TV ring, Pacemaker Image Quality: Fair Contrast: Requested by: Kayla Hewitt BP: / Heart Rate: 100 bpm Rhythm: Pacemaker rhythm Indication: Shortness of breath, CHF, Hx of MVR, TV ring, Pacemaker Procedure Staff Sheet Metal Welder: Shahab Grover [facility] Reading Physician: Evaristo Duran MD Requesting Provider: Conclusions: Normal size left ventricle. Mild concentric LV hypertrophy. The EF is estimated at 40-45%. Normal size right ventricle. Mildly reduced RV function. There is a pacemaker lead noted in the right ventricle. The left atrium is normal in size. The right atrium is normal in size. A bioprosthetic mitral valve is in place.. There is a #25 Magna valve in the mitral position.. The aortic valve is tri-leaflet. The aortic valve is normal in appearance and function. There is no aortic valve regurgitation. No aortic valve stenosis is present. There is a #28 annuloplasty ring.. The pulmonic valve is normal in appearance and function. The aorta is normal. No pericardial effusion. Compared to a prior study dated 05/03/2016 there appeara to have been improvement in the LV function with a prior EF of 15-20 % now this is measured with multiple modalities to be approximately 40 %. Repeat echo in 2 -3 years to track the severity of tricuspid regurgitation as weel as the function of the mitral valve prosthesis. Measurements: Chambers Valvular Assessment AV/MV Valvular Assessment TV/PV Normal Normal Normal Name Value Range Name Value Range Name Value Range TR Vmax: 2.20 mm/s ( - ) Patient: ROSINA TRINIDADN: [id number] Study Date: 04/21/2018 Page 1 of 2 10:06 AM Ao Dominique (MM): 2.2 cm (2.2 cm-3.7 AV Vmax: 1.30 m/s (1 m/s-1.7 TR PGmax: 19 mmHg ( - ) cm) m/s) syst. PAP: 24 mmHg ( - ) IVSd (2D): 1.0 cm (0.6 cm-1.1 AV maxP mmHg ( - ) PV Vmax: 0.95 m/s (0.6 m/s-0.9 cm) LVOT Vmax: 0.84 m/s (0.7 m/s-1.1 m/s) LVDd (2D): 5.0 cm (3.9 cm-5.3 m/s) PV PGmax: 4 mmHg ( - ) cm) MV E Vmax: 1.86 m/s ( - ) LVDs (2D): 4.0 cm (2.1 cm-4 MV maxP mmHg ( - ) cm) MV meanP mmHg ( - ) LVPWd (2D): 0.9 cm ( - ) LVEF (BP): 44 % (>=55 %) Continued Measurements: Chambers Valvular Assessment AV/MV Valvular Assessment TV/PV Name Value Name Value Name Value LADs Lon.3 cm MV VTI: 47.90 cm CVP (est.): 5 mmHg LA Area: 14.0 cm2 LA Volume: 37 ml LA Volume Index: 23.1 ml/m2 Findings: Left Ventricle: Normal size left ventricle. Mild concentric LV hypertrophy. The EF is estimated at 40-45%. Right Ventricle: Normal size right ventricle. Mildly reduced RV function. There is a pacemaker lead noted in the right ventricle. Left Atrium: The left atrium is normal in size. Right Atrium: The right atrium is normal in size. Mitral Valve: A bioprosthetic mitral valve is in place.. There is a #25 Magna valve in the mitral position.. Aortic Valve: The aortic valve is tri-leaflet. The aortic valve is normal in appearance and function. There is no aortic valve regurgitation. No aortic valve stenosis is present. Tricuspid Valve: There is a #28 annuloplasty ring.. Pulmonic Valve: The pulmonic valve is normal in appearance and function. Aorta: The aorta is normal. Pericardium: No pericardial effusion. Exam Comments: (No Signature Object) Patient: ROSINA GASTON Study Date: 04/21/2018 Page 2 of 2 10:06 AM [id number]
--- NOTE | 2018-04-22 05:18 | GDS ---
[f rep st] DISCHARGE SUMMARY Please see admission History and Physical by Dr. Kayla Hewitt. The patient presented with neurologic symptoms. She was seen by Hospital Medicine and Neurology. She did not want to stay in the [facility] for further evaluation. I did not see this patient. She left against medical advice. /[id number]/MODL
--- NOTE | 2018-04-22 09:12 | PDCONSULT ---
[facility] Note: Followup call: I called the patient this morning. She left against medical advice (AMA) from the emergency department yesterday. Please see my consultation note for details. The patient's voice was entirely clear on the phone and she stated that she is "100%" normal now. In retrospect, she thinks she took extra Adderall or Ativan - she is not sure which, but she is certain she took extra medication. We discussed this could have caused transient neurologic symptoms. Going forward, she agrees to the followin. Return to the emergency department for any acute neurologic symptoms 2. Follow-up with cardiology angelica for ECG monitoring for atrial fibrillation and review of echocardiogram 3. Complete 21 days of Plavix 75 mg daily plus aspirin 81 mg, then after 21 days , continue aspirin 81 mg alone . 4. PCP and Neurology follow-up with me She agrees to the above.
== END 2018-04-21 11:35 | disposition left against medical advice (07) ==
LOC: EDUNIT# → UNDOADMOB 04-21 05:18
DX: R29.898 Other symptoms and signs involving the musculoskeletal system (principal); F41.9 Anxiety disorder, unspecified; E11.9 Type 2 diabetes mellitus without complications; E86.9 Volume depletion, unspecified; Z79.01 Long term (current) use of anticoagulants
CPT/HCPCS: 70450; 70496; 70498; 71045; 93005; 93306; 96361; 96372; 96374; 96375; 99285; J1815; J1940; J2060; 80305; G0480; J1650